=== PATIENT | female | born 1990 | race African-American/Black ===

== ENCOUNTER → 2017-06-25 | Outpatient (REF) | LOC: M LAB 10:17 | PROVIDERS: ATTEND Nurse Practitioner Adult Health | DX: Z02.1 Encounter for pre-employment examination (principal) ==

== ENCOUNTER 2018-08-17 14:17 | Emergency (ER) | payer OTHER ==
[2018-08-17] MEDS ORDERED: FLUORESCEIN OPHTH 1 MG STRIP OD (15:15)
[2018-08-17] MEDS ORDERED: TETRACAINE 0.5% OPHTH SOLN 4ML OD (15:15)
[2018-08-17] MEDS: ERYTHROMYCIN OPHTH OINT OD (15:24)
== END 2018-08-17 15:46 | disposition home or self-care (01) ==
LOC: M ED 14:17
DX: H10.021 Other mucopurulent conjunctivitis, right eye (principal); Z88.5 Allergy status to narcotic agent
CPT/HCPCS: 99283

== ENCOUNTER 2018-11-04 23:10 | Emergency (ER) | payer OTHER ==
[~2018-11-04] VITALS: Ht 167.6 cm; Wt 95.9 kg
[~2018-11-04 23:10] MED LIST: ERYTOIN8 OD
[2018-11-05 00:15] LABS: BASO % 0.7 % (0.0-1.0); EOS # 0.5 10^3/uL (0.0-0.50); EOS % 8.1 % (0.0-3.0); HEMOGLOBIN 10.9 g/dl (12.0-15.5); LYMPH # 2.7 10^3/uL (1.5-4.5); LYMPH % 47.7 % (24.0-44.0); MEAN CORPUSCULAR HGB CONC 31.1 g/dl (32.0-36.5); MEAN CORPUSCULAR VOLUME 86.6 fl (80.0-96.0); MONO # 0.4 10^3/uL (0.0-0.8); MONO % 7.3 % (0.0-5.0); PLATELET COUNT, AUTOMATED 384 10^3/uL (150-450); RED BLOOD COUNT 4.04 10^6/uL (4.00-5.40); WHITE BLOOD COUNT 5.6 10^3/uL (4.0-10.0)
[2018-11-05 00:18] LABS: INR 1.04; PROTHROMBIN TIME 13.7 SECONDS (12.1-14.4)
[2018-11-05 00:19] LABS: PARTIAL THROMBOPLASTIN TIME 35.9 SECONDS (25.4-37.6)
[2018-11-05 00:24] LABS: BLOOD UREA NITROGEN 11 MG/DL (7-18); CALCIUM LEVEL 8.5 MG/DL (8.5-10.1); CARBON DIOXIDE LEVEL 27 MEQ/L (21-32); CHLORIDE LEVEL 105 MEQ/L (98-107); CPK CREATINE PHOSPHOKINASE 228 U/L (26-192); CREATININE FOR GFR 0.69 MG/DL (0.55-1.30); GLOMERULAR FILTRATION RATE > 60.0 (>60); GLUCOSE, FASTING 103 MG/DL (70-100); MB/CK RELATIVE INDEX 1.45 (< OR =4); POTASSIUM SERUM 3.9 MEQ/L (3.5-5.1); SODIUM LEVEL 140 MEQ/L (136-145); TROPONIN I < 0.02 NG/ML (< 0.10)
[2018-11-05 00:29] LABS: HCG, SERUM QUALITATIVE NEGATIVE (NEGATIVE)
[2018-11-05] MEDS ORDERED: ISOVUE-370 76% 100ML VIAL (Q9967) As Ordered ONE (00:38)
--- NOTE | 2018-11-05 01:54 | REPVR ---
EXAM: CT Angiography Chest With Contrast EXAM DATE/TIME: 11/05/18 (12:33am) CLINICAL HISTORY: 28 year old female with chest pain TECHNIQUE: Axial computed tomographic angiography images of the chest with intravenous contrast using CT angiography protocol. All CT scans at this facility use at least one of these dose optimization techniques: automated exposure control; mA and/or kV adjustment per patient size (includes targeted exams where dose is matched to clinical indication); or iterative reconstruction. Coronal and sagittal reformatted images were created and reviewed. MIP reconstructed images were created and reviewed. CONTRAST: 75 ml of Iso administered intravenously COMPARISON: No relevant prior studies available FINDINGS: Pulmonary arteries: Normal. No pulmonary emboli. Aorta: Normal. No aortic aneurysm. No aortic dissection. Lungs: Normal. No consolidation nor masses. Pleural space: Normal. No pneumothorax. No pleural effusions. Heart: Normal. No cardiomegaly. No pericardial effusion. Lymph nodes: Unremarkable. No enlarged lymph nodes. Bones/joints: Unremarkable. No acute fracture. Soft tissues: Unremarkable. IMPRESSION: No acute findings. No filling defects suspicious for pulmonary emboli are seen. There is no CT evidence of aortic dissection nor leakage. No aortic aneurysm is appreciated. Electronically signed by: Yodit Stinson On 11/05/2018 01:54:21 AM
[2018-11-05] MEDS ORDERED: KETOROLAC 30 MG/ML VIAL (J1885) IV ONE (02:00)
[2018-11-05 02:45] VITALS: BP 114/66
--- NOTE | 2018-11-06 08:11 | ECGEPIP ---
Stationary ECG Study [facility] - ED Test Date: 2018-11-04 Pat Name: DEONTE TITUS Department: Room: - Gender: F Handy Worker: edmond : 1990 Requested By: HERNANDEZ HINES Order Number: [id number] Reading MD: Marjan Wooten Measurements Intervals [place] Rate: 76 P: 71 TX: 166 QRS: 11 QRSD: 84 T: 35 QT: 382 QTc: 432 Interpretive Statements SINUS RHYTHM NONSPECIFIC ST T WAVE CHANGES NO OLD ECG FOR COMPARISON Electronically Signed On 11-06-2018 8:11:34 EST by Marjan Wooten
== END 2018-11-05 03:07 | disposition home or self-care (01) ==
LOC: M ED 23:10
DX: R07.89 Other chest pain (principal); Z97.5 Presence of (intrauterine) contraceptive device
CPT/HCPCS: 71275; 80048; 82550; 82553; 84703; 85025; 85610; 85730; 93005; 96374; 99284; J1885; Q9967

== ENCOUNTER 2019-01-01 21:40 | Emergency (ER) | payer OTHER ==
[~2019-01-01] VITALS: Ht 170.2 cm; Wt 95.9 kg
[2019-01-01 21:40] VITALS: BP 142/77
== END 2019-01-01 23:02 | disposition home or self-care (01) ==
LOC: M ED 21:40
DX: J02.9 Acute pharyngitis, unspecified (principal); Z88.5 Allergy status to narcotic agent

== ENCOUNTER 2019-11-09 03:30 | Emergency (ER) | payer OTHER ==
[~2019-11-09] VITALS: Ht 167.6 cm; Wt 100.0 kg
[2019-11-09 04:03] LABS: BASO % 0.5 % (0.0-1.0); EOS # 0.4 10^3/uL (0.0-0.5); EOS % 6.2 % (0.0-3.0); HEMATOCRIT 37.8 % (36.0-47.0); HEMOGLOBIN 11.2 g/dl (12.0-15.5); LYMPH # 2.3 10^3/uL (1.5-5.0); LYMPH % 33.9 % (24.0-44.0); MEAN CORPUSCULAR HGB CONC 29.6 g/dl (32.0-36.5); MEAN CORPUSCULAR VOLUME 87.9 fl (80.0-96.0); MONO # 0.5 10^3/uL (0.0-0.8); MONO % 7.4 % (0.0-5.0); NEUTROPHILS # 3.5 10^3/uL (1.5-8.5); NEUTROPHILS % 51.8 % (36.0-66.0); PLATELET COUNT, AUTOMATED 392 10^3/uL (150-450); WHITE BLOOD COUNT 6.7 10^3/uL (4.0-10.0)
[2019-11-09 04:32] LABS: ALBUMIN 3.6 GM/DL (3.2-5.2); ALT/SGPT 16 U/L (12-78); BILIRUBIN,DIRECT 0.1 MG/DL (0.0-0.2); BILIRUBIN,TOTAL 0.3 MG/DL (0.2-1.0); BLOOD UREA NITROGEN 9 MG/DL (7-18); CALCIUM LEVEL 8.5 MG/DL (8.5-10.1); CARBON DIOXIDE LEVEL 26 MEQ/L (21-32); CHLORIDE LEVEL 106 MEQ/L (98-107); CREATININE FOR GFR 0.73 MG/DL (0.55-1.30); GLOMERULAR FILTRATION RATE > 60.0 (>60); GLUCOSE, FASTING 102 MG/DL (70-100); LIPASE 117 U/L (73-393); POTASSIUM SERUM 3.9 MEQ/L (3.5-5.1); SODIUM LEVEL 138 MEQ/L (136-145); TOTAL PROTEIN 7.4 GM/DL (6.4-8.2)
[2019-11-09 05:16] LABS: HCG, SERUM QUALITATIVE NEGATIVE (NEGATIVE)
[2019-11-09] MEDS ORDERED: ONDANSETRON 4 MG ORAL DISINTEGRATING TAB (Q0162 PER 1MG) PO ONE (06:15)
--- NOTE | 2019-11-09 08:26 | REPVR ---
PROCEDURE INFORMATION: Exam: US Pelvis Complete, Transabdominal and US Pelvis, Transvaginal and US Duplex Artery and Vein, Ovaries, Complete Exam date and time: 11/09/2019 7:44 AM Age: 29 years old Clinical indication: Pelvic pain; Additional info: Llq pain with HX of ovarian cyst TECHNIQUE: Imaging protocol: Real-time transabdominal and transvaginal pelvic ultrasound (complete) with image documentation. Transvaginal imaging was used for better evaluation of the endometrium and adnexa. Real-time duplex ultrasound scan of the arterial and venous flow of the ovaries with B-mode, color Doppler flow and spectral waveform analysis. COMPARISON: No relevant prior studies available. FINDINGS: Uterus/cervix: The uterus measures 9.8 x 4.8 x 5.8 cm transabdominally and 10.2 x 5.1 x 6.7 cm transvaginally. It is homogeneous in echotexture, without demonstrated lesion. An intrauterine device is in place. The endometrium measures 7 mm in thickness as best visualized transvaginally. Right adnexa: The right ovary measures 3.2 x 4.5 x 3.5 cm transabdominally and 4.2 x 3.2 x 3.6 cm transvaginally. It contains multiple follicles and demonstrates normal internal arterial and venous flow. Peak systolic velocity 16.0 cm/s, end-diastolic velocity 8.9 cm/s, resistive index 0.44. Left adnexa: The left ovary measures 5.1 x 2.9 x 3.8 cm, as seen transvaginally only. It contains multiple follicles and a thick-walled collapsing cyst which measures 2.1 x 1.2 x 1.9 cm. There is normal internal arterial and venous flow. Peak systolic velocity 9.9 cm/s, end-diastolic velocity 3.9 cm/s, resistive index 0.61. Free fluid: Small free fluid is present in the cul-de-sac. Bladder: The urinary bladder measures 9.0 x 6.0 x 5.3 cm and appears unremarkable. IMPRESSION: 1. Intrauterine device in place. 2. Bilateral ovarian follicles with a 2.1 cm thick-walled collapsing left ovarian cyst. 3. Normal internal flow to both ovaries without torsion. 4. Small free fluid in the cul-de-sac. Electronically signed by: Eris Barahona On 11/09/2019 08:25:53 AM
[2019-11-09] MEDS ORDERED: ONDA4TAB6 PO (08:40)
[2019-11-09 09:07] VITALS: BP 118/75
== END 2019-11-09 09:09 | disposition home or self-care (01) ==
LOC: M ED 03:30
DX: N83.202 Unspecified ovarian cyst, left side (principal); R19.7 Diarrhea, unspecified; Z97.5 Presence of (intrauterine) contraceptive device; Z79.899 Other long term (current) drug therapy
CPT/HCPCS: 76830; 76856; 80048; 80076; 81001; 83690; 84703; 85025; 87086; 93976; 99284; Q0162

== ENCOUNTER → 2020-01-24 | Outpatient (CLI) | payer OTHER ==
[~2020-01-24] MED LIST changes: +ONDA4TAB6 PO
--- NOTE | 2020-01-24 10:22 | REP ---
PELVIC ULTRASOUND: Real-time sonographic evaluation of the pelvis performed. Transabdominal and endovaginal technique is utilized. The bladder measures 3.9 x 3.6 cm. The uterus measures 9.1 x 5.3 x 6.5 cm. Endometrial thickness is prominent at 18 mm. There is an IUD in the endometrial canal, which appears to be in good position. Posteriorly, there is a hypoechoic nodule which appears to represent a submucosal fibroid measuring 1.3 x 1.5 x 1.2 cm. Uterus is retroverted. Right ovary measures 4.3 x 3.1 x 3.2 cm and left ovary 2.9 x 1.5 x 1.8 cm. Complex cystic structure in the right ovary measures 2.7 x 2.0 x 2.1 cm likely representing a hemorrhagic resolving dominant follicle or cyst. There is a simple paraovarian cyst in the right measuring 1.6 x 1.2 x 1.1 cm. Small amount of free fluid is seen in the adnexal regions. There is no evidence of ovarian torsion bilaterally, blood flow is seen in each ovary with duplex Doppler evaluation. IMPRESSION: IUD in the endometrial canal. There appears to be a submucosal fibroid in the posterior retroverted uterus measuring 1.5 cm in maximum diameter. Prominent endometrial thickness of 18 mm. Complex dominant follicle or small resolving cyst right ovary 2.7 cm in maximum diameter. Simple paraovarian cyst on the right 1.6 cm maximally. Small amount of free fluid.
== END ==
LOC: M WHC 08:49
PROVIDERS: ATTEND Advanced Practice Midwife
DX: N83.201 Unspecified ovarian cyst, right side (principal)

== ENCOUNTER → 2020-05-07 | Outpatient (REF) | payer OTHER, MEDICAID | LOC: M SFHCWAGY 10:19 | PROVIDERS: ATTEND Advanced Practice Midwife | DX: Z12.4 Encounter for screening for malignant neoplasm of cervix (principal); Z01.419 Encounter for gynecological examination (general) (routine) without abnormal findings ==

== ENCOUNTER → 2020-07-26 | Outpatient (REF) | payer OTHER, MEDICAID ==
[2020-07-26 16:56] LABS: BASO % 0.9 % (0.0-1.0); EOS # 0.2 10^3/uL (0.0-0.5); EOS % 5.1 % (0.0-3.0); HEMATOCRIT 36.1 % (36.0-47.0); LYMPH # 1.8 10^3/uL (1.5-5.0); LYMPH % 41.9 % (24.0-44.0); MEAN CORPUSCULAR HEMOGLOBIN 26.7 pg (27.0-33.0); MEAN CORPUSCULAR HGB CONC 30.5 g/dl (32.0-36.5); MEAN CORPUSCULAR VOLUME 87.6 fl (80.0-96.0); MONO # 0.3 10^3/uL (0.0-0.8); MONO % 6.3 % (0.0-5.0); NEUTROPHILS % 45.6 % (36.0-66.0); PLATELET COUNT, AUTOMATED 420 10^3/uL (150-450); RED BLOOD COUNT 4.12 10^6/uL (4.00-5.40); WHITE BLOOD COUNT 4.3 10^3/uL (4.0-10.0)
[2020-07-26 17:10] LABS: ALBUMIN 3.6 GM/DL (3.2-5.2); ALT/SGPT 16 U/L (12-78); BILIRUBIN,TOTAL 0.4 MG/DL (0.2-1.0); BLOOD UREA NITROGEN 12 MG/DL (7-18); CALCIUM LEVEL 8.5 MG/DL (8.5-10.1); CARBON DIOXIDE LEVEL 27 MEQ/L (21-32); CHLORIDE LEVEL 106 MEQ/L (98-107); CHOLESTEROL LEVEL 148 MG/DL (<200); CHOLESTEROL RISK RATIO 3.363 (<5); CREATININE FOR GFR 0.69 MG/DL (0.55-1.30); GLOMERULAR FILTRATION RATE > 60.0 (>60); GLUCOSE, FASTING 96 MG/DL (70-100); HDL CHOLESTEROL 44 MG/DL (>40); LDL CHOLESTEROL 88 MG/DL (<100); NON-HDL-C 104 MG/DL; POTASSIUM SERUM 4.2 MEQ/L (3.5-5.1); SODIUM LEVEL 138 MEQ/L (136-145); TOTAL PROTEIN 7.6 GM/DL (6.4-8.2); TRIGLYCERIDES LEVEL 79 MG/DL (<150)
[2020-07-26 17:14] LABS: HEMOGLOBIN A1c 5.1 %
== END ==
LOC: M LAB REF 16:18
PROVIDERS: ATTEND Physician Assistant
DX: R42 Dizziness and giddiness (principal)

== ENCOUNTER → 2020-09-04 | Outpatient (REF) | payer OTHER, MEDICAID ==
[2020-09-04 13:14] LABS: BASO # 0.1 10^3/uL (0.0-0.2); BASO % 1.3 % (0.0-1.0); EOS # 0.2 10^3/uL (0.0-0.5); EOS % 6.4 % (0.0-3.0); HEMOGLOBIN 11.1 g/dl (12.0-15.5); LYMPH # 1.6 10^3/uL (1.5-5.0); LYMPH % 43.5 % (24.0-44.0); MEAN CORPUSCULAR HEMOGLOBIN 26.9 pg (27.0-33.0); MEAN CORPUSCULAR HGB CONC 30.8 g/dl (32.0-36.5); MEAN CORPUSCULAR VOLUME 87.4 fl (80.0-96.0); MONO # 0.3 10^3/uL (0.0-0.8); NEUTROPHILS # 1.5 10^3/uL (1.5-8.5); NEUTROPHILS % 40.5 % (36.0-66.0); PLATELET COUNT, AUTOMATED 418 10^3/uL (150-450); RED BLOOD COUNT 4.12 10^6/uL (4.00-5.40); WHITE BLOOD COUNT 3.8 10^3/uL (4.0-10.0)
[2020-09-04 13:53] LABS: PERCENT SATURATION 25.1 % (13.2-45.0)
== END ==
LOC: M LAB REF 12:33
PROVIDERS: ATTEND Physician Assistant
DX: D64.9 Anemia, unspecified (principal)

== ENCOUNTER → 2021-07-22 | Outpatient (CLI) | payer OTHER ==
--- NOTE | 2021-07-22 15:57 | REP ---
INDICATION: OVARIAN CYST. COMPARISON: January 24, 2020. TECHNIQUE: Transabdominal and transvaginal scanning were performed. FINDINGS: Uterine dimensions are normal at 9.1 x 5.5 x 6.8 cm. Endometrial echo is 1.4 cm thick and centrally placed. No free fluid is seen in the cul-de-sac. Visualized bladder milian are smooth. uterus is tipped somewhat to the right. There is a trace of free fluid in the cul-de-sac consistent with physiologic fluid. An IUD is seen in good position. There is a 1.3 x 1.8 cm nodular area of endometrial thickening in the fundus which could be an endometrial polyp. The right ovary has dimensions of 5.0 x 2.6 x 3.7 cm. It's Doppler flow is normal with a resistive index of 0.4. The left ovary dimensions are normal as well at 2.7 x 2.7 x 2.2 cm. It's Doppler flow was normal with resistive index of 0.74. IMPRESSION: Possible endometrial polyp. IUD in place. Physiologic free fluid. No ovarian mass or cyst seen. <Electronically signed by Maximino Laughlin > 07/22/21 0819
== END ==
LOC: M WHC 07:20
PROVIDERS: ATTEND Advanced Practice Midwife
DX: N83.209 Unspecified ovarian cyst, unspecified side (principal)

== ENCOUNTER → 2021-08-04 | Outpatient (REF) | LOC: M EMP 10:13 | PROVIDERS: ATTEND Family Medicine | DX: Z20.822 Contact with and (suspected) exposure to COVID-19 (principal) ==

== ENCOUNTER 2021-08-15 16:52 | Emergency (ER) | payer OTHER ==
[~2021-08-15] VITALS: Ht 170.2 cm; Wt 112.3 kg
--- OUTSIDE RECORDS SUMMARY | 2021-08-15 17:00 | CCD ---
Author Author [facility] Organization [facility] Address Unknown Phone Unavailable Care Team Providers Care Right Of Way Worker Name Role Phone Matthew, Carrie REPAIR WEAVER REPAIR WEAVER Unavailable Unavailable Matthew, A Carrie REPAIR WEAVER Unavailable Unavailable Matthew, A Carrie REPAIR WEAVER Unavailable Unavailable Matthew, A Carrie REPAIR WEAVER Unavailable Unavailable Matthew, A Carrie REPAIR WEAVER Unavailable Unavailable Matthew, A Carrie REPAIR WEAVER Unavailable Unavailable Matthew, A Carrie REPAIR WEAVER Unavailable Unavailable Matthew, A Carrie REPAIR WEAVER Unavailable Unavailable Matthew, A Carrie REPAIR WEAVER Unavailable Unavailable Matthew, A Carrie REPAIR WEAVER Unavailable Unavailable Matthew, A Carrie REPAIR WEAVER Unavailable Unavailable Matthew, A Carrie REPAIR WEAVER Unavailable Unavailable Matthew, A Carrie REPAIR WEAVER Unavailable Unavailable Matthew, A Carrie REPAIR WEAVER Unavailable Unavailable Matthew, A Carrie REPAIR WEAVER Unavailable Unavailable Matthew, A Carrie REPAIR WEAVER Unavailable Unavailable Matthew, A Carrie REPAIR WEAVER Unavailable Unavailable Matthew, A Carrie REPAIR WEAVER Unavailable Unavailable Matthew, A Carrie REPAIR WEAVER Unavailable Unavailable Matthew, A Carrie REPAIR WEAVER Unavailable Unavailable Matthew, A Carrie REPAIR WEAVER Unavailable Unavailable Matthew, A Carrie REPAIR WEAVER Unavailable Unavailable Matthew, A Carrie REPAIR WEAVER Unavailable Unavailable Matthew, A Carrie REPAIR WEAVER Unavailable Unavailable Matthew, A Carrie REPAIR WEAVER Unavailable Unavailable Matthew, A Carrie REPAIR WEAVER Unavailable Unavailable Matthew, A Carrie REPAIR WEAVER Unavailable Unavailable Matthew, A Carrie REPAIR WEAVER Unavailable Unavailable Matthew, A Carrie REPAIR WEAVER Unavailable Unavailable Matthew, A Carrie REPAIR WEAVER Unavailable Unavailable Matthew, A Carrie REPAIR WEAVER Unavailable Unavailable Matthew, A Carrie REPAIR WEAVER Unavailable Unavailable Scordo, M Bella PA Unavailable Unavailable Scordo, M Bella PA Unavailable Unavailable Scordo, M Bella PA Unavailable Unavailable Scordo, M Bella PA Unavailable Unavailable Scordo, M Bella PA Unavailable Unavailable Scordo, M Bella PA Unavailable Unavailable Scordo, M Bella PA Unavailable Unavailable Scordo, M Bella PA Unavailable Unavailable Scordo, M Bella PA Unavailable Unavailable Scordo, M Bella PA Unavailable Unavailable Scordo, M Bella PA Unavailable Unavailable Scordo, M Bella PA Unavailable Unavailable Scordo, M Bella PA Unavailable Unavailable Scordo, M Bella PA Unavailable Unavailable Scordo, M Bella PA Unavailable Unavailable Scordo, M Bella PA Unavailable Unavailable Scordo, M Bella PA Unavailable Unavailable Scordo, M Bella PA Unavailable Unavailable Scordo, M Bella PA Unavailable Unavailable Scordo, M Bella PA Unavailable Unavailable Scordo, M Bella PA Unavailable Unavailable Scordo, M Bella PA Unavailable Unavailable Scordo, M Bella PA Unavailable Unavailable Scordo, M Bella PA Unavailable Unavailable Scordo, M Bella PA Unavailable Unavailable Scordo, M Bella PA Unavailable Unavailable Scordo, M Bella PA Unavailable Unavailable Scordo, M Bella PA Unavailable Unavailable Scordo, M Bella PA Unavailable Unavailable Scordo, M Bella PA Unavailable Unavailable Scordo, M Bella PA Unavailable Unavailable Scordo, M Bella PA Unavailable Unavailable Scordo, M Bella PA Unavailable Unavailable Scordo, M Bella PA Unavailable Unavailable Scordo, M Bella PA Unavailable Unavailable Scordo, M Bella PA Unavailable Unavailable Scordo, M Bella PA Unavailable Unavailable Scordo, M Bella PA Unavailable Unavailable Scordo, M Bella PA Unavailable Unavailable Scordo, M Bella PA Unavailable Unavailable Scordo, M Bella PA Unavailable Unavailable Scordo, M Bella PA Unavailable Unavailable Scordo, M Bella PA Unavailable Unavailable Scordo, M Bella PA Unavailable Unavailable Scordo, M Bella PA Unavailable Unavailable Scordo, M Bella PA Unavailable Unavailable Scordo, M Bella PA Unavailable Unavailable Re-disclosure Warning The records that you are about to access may contain information from federally-assisted alcohol or drug abuse programs. If such information is present, then the following federally mandated warning applies: This information has been disclosed to you from records protected by federal confidentiality rules (42 CFR part 2). The federal rules prohibit you from making any further disclosure of this information unless further disclosure is expressly permitted by the written consent of the person to whom it pertains or as otherwise permitted by 42 CFR part 2. A general authorization for the release of medical or other information is NOT sufficient for this purpose. The Federal rules restrict any use of the information to criminally investigate or prosecute any alcohol or drug abuse patient.The records that you are about to access may contain highly sensitive health information, the redisclosure of which is protected by Article 27-F of the [facility] Public Health law. If you continue you may have access to information: Regarding HIV / AIDS; Provided by facilities licensed or operated by the [facility] Office of Mental Health; or Provided by the [facility] Office for People With Developmental Disabilities. If such information is present, then the following [facility] mandated warning applies: This information has been disclosed to you from confidential records which are protected by state law. State law prohibits you from making any further disclosure of this information without the specific written consent of the person to whom it pertains, or as otherwise permitted by law. Any unauthorized further disclosure in violation of state law may result in a fine or retirement sentence or both. A general authorization for the release of medical or other information is NOT sufficient authorization for further disc losure. Encounters Encounter Providers Location Date Indications Data Source(s ) Bella Saha PA-C: [address] [place] [id number], Ph. Attender: Bella GARNER [facility] Medical 02/05/2021 12:00:00 AM EDT [facility] ([facility]) Outpatient Attender: KAMILLE SIMENTAL FP 09/04/2020 08:20:01 A M EST [facility] Bella Saha PA-C: [address] [place] [address], Ph. Attender: Bella GARNER [facility] Medical 09/04/2020 12:00:00 AM EST [facility] ([facility]) Bella Saha PA-C: [address] [place] [address], Ph. Attender: Bella GARNER [facility] Medical 09/04/2020 12:00:00 AM EST [facility] ([facility]) Outpatient Attender: Carrie KUMAR 07/29/2020 07:4 4:03 AM EDT [facility] Outpatient Attender: KAMILLE KUMAR 07/29/2020 07:44:01 A M EDT [facility] Outpatient Attender: Carrie SIMENTAL FP 07/26/2020 02:0 1:01 PM EDT [facility] Outpatient Attender: KAMILLE KUMAR 07/26/2020 09:18:02 A M EDT [facility] Outpatient Attender: Carrie KUMAR 07/26/2020 09:1 7:01 AM EDT [facility] Outpatient Attender: KAMILLE KUMAR 07/26/2020 07:51:00 A M EDT [facility] Outpatient Attender: KAMILLE KUMAR 07/26/2020 07:50:00 A M EDT [facility] Outpatient Attender: KAMILLE KUMAR 07/26/2020 07:30:01 A M EDT [facility] Outpatient Attender: KAMILLE KUMAR 07/26/2020 07:29:01 A M EDT [facility] Outpatient Attender: KAMILLE KUMAR 07/17/2020 02:45:00 P M EDT [facility] Outpatient Attender: KAMILLE Castro REPAIR WEAVER FP 06/28/2020 01:46:01 P M EDT [facility] Immunizations Vaccine Date Status Description Data Source(s) COVID-19 VACCINE Moderna 02/28/2021 12:00:00 AM EDT completed [facility] Vaccine Series Complete: YESThis Data wa s Submitted to [facility] [employer]. COVID-19 VACCINE Moderna 01/31/2021 12:00:00 AM EDT completed [facility] Vaccine Series Complete: NOThis Data was Submitted to [facility] [employer]. Tdap 07/26/2020 12:00:00 AM EDT completed 07/26/2020 0.5 mL [facility] ([facility]) Medications Medication Brand Name Start Date Product Form Dose Route Admi nistrative Instructions Pharmacy Instructions Status Indications Reaction Description Data Source(s) Ondansetron 4 MG Disintegrating Oral Tab let ondansetron 4 mg disintegrating tablet DISSOLVE ONE TABLET ON TONGUE EVERY 6 TO 8 HOURS NEEDED FOR NAUSEA/VOMITING ondansetron 4 mg disintegrating tablet D ISSOLVE ONE TABLET ON TONGUE EVERY 6 TO 8 HOURS NEEDED FOR NAUSEA/VOMITING completed ondansetron 4 MG Disintegrating Oral Tablet [facility] ([facility]) Ondansetron 4 MG Disintegrating Oral Tab let ondansetron 4 mg disintegrating tablet DISSOLVE ONE TABLET ON TONGUE EVERY 6 TO 8 HOURS NEEDED FOR NAUSEA/VOMITING ondansetron 4 mg disintegrating tablet D ISSOLVE ONE TABLET ON TONGUE EVERY 6 TO 8 HOURS NEEDED FOR NAUSEA/VOMITING completed ondansetron 4 MG Disintegrating Oral Tablet [facility] ([facility]) Insurance Providers Payer name Policy type / Coverage type Policy ID Covered alliance party ID Covered alliance party's relationship to carr Policy Carr Plan Information Managed Care - [facility] P [id number] S [id number] [place] [id number] SP [id number] R [id number] [id number] SP [id number] Medicaid S [id number] S [id number] [facility] [id number] SP [id number] [facility] O [id number] S [id number] [facility] [id number] SP [id number] MEDICAID [id number] SP [id number] [facility] P [id number] S [id number] [facility] [id number] SP [id number] Sliding Fee Scale P UNAVAILABLE S UNAVAILABLE Problems, Conditions, and Diagnoses Code Display Name Description Problem Type Effective Dates Data Source(s) 723.1 Neck pain Neck pain 07/26/2020 09:16:27 AM ED T [facility] V70.0 Encounter for general adult medical exam ination with abnormal findings Encounter for general adult medical examination with abnormal findings 07/26/2020 09:16:27 AM EDT [facility] V05.9 Encounter for immunization Encounter for immunization 07/26/2020 09:16:27 AM EDT [facility] 788.41 Increased frequency of urination Increased frequency o f urination 07/26/2020 09:16:27 AM EDT [facility] 780.4 Dizziness and giddiness Dizziness and giddiness 07/26/2020 09:16:27 AM EDT [facility] V85.38 BMI 38.0-38.9 BMI 38.0-38.9 07/26/2020 09:16:27 AM EDT [facility] 278.00 Obesity Obesity 07/26/2020 09:16:27 AM ED T [facility] [id number] Procedure by method Procedure by Method Problem 1 12:00:00 AM EDT - 02/05/2021 12:00:00 AM EDT [place] ([facility]) [id number] Influenza vaccine needed Influenza Vaccine Needed Pro blem 07/26/2020 12:00:00 AM EDT - 02/05/2021 12:00:00 AM EDT [facility] ([facility]) [id number] Increased frequency of urination Increased Frequ ency of Urination Problem 07/26/2020 12:00:00 AM EDT - 02/05/2021 12:00:00 AM ED T [facility] ([facility]) [id number] Dizziness and giddiness Dizziness and Giddiness Proble m 07/26/2020 12:00:00 AM EDT - 02/05/2021 12:00:00 AM EDT [facility] ([facility]) [id number] Neck pain Neck Pain Problem 07/26/2020 12:00:00 AM ED T [facility] ([facility]) 668714504 Body mass index 30+ - obesity Body Mass Index 30+ - Ob esity Problem 07/26/2020 12:00:00 AM EDT [facility] ([facility]) [id number] Simple obesity Simple Obesity Problem 07/26/2020 12:00: 00 AM EDT [facility] ([facility]) 32809051 Diarrhea Diarrhea Problem 02/11/2018 12:0 0:00 AM EDT - 02/05/2021 12:00:00 AM EDT [facility] ([facility]) Surgeries/Procedures No Information Results ID Date Data Source [id number] 08/05/2021 12:00:00 AM EDT [facility] Name Value Range Interpretation Code Description Data Carey rce(s) Supporting Document(s) SARS coronavirus 2 [facility]IVE [facility] This lab was ordered by [facility] and reported by [facility]. ID Date Data Source [id number] 08/04/2021 10:13:00 AM EDT [facility] Name Value Range Interpretation Code Description Data Carey rce(s) Supporting Document(s) SARS coronavirus 2 RNA [Presence] in Res piratory specimen by ANGLE with probe detection POSITIVE [facility] This lab was ordered by [facility] a nd reported by [facility]. ID Date Data Source [id number] 07/29/2021 12:00:00 AM EDT [facility] Name Value Range Interpretation Code Description Data Carey rce(s) Supporting Document(s) SARS coronavirus 2 Ag NEGATIVE [facility] This lab was ordered by [facility] and reported by [facility]. ID Date Data Source [id number] 07/22/2021 12:00:00 AM EDT [facility] Name Value Range Interpretation Code Description Data Carey rce(s) Supporting Document(s) SARS coronavirus 2 Ag NEGATIVE [facility] This lab was ordered by [facility] and reported by [facility]. ID Date Data Source [id number] 07/15/2021 12:00:00 AM EDT [facility] Name Value Range Interpretation Code Description Data Carey rce(s) Supporting Document(s) SARS coronavirus 2 Ag NEGATIVE [facility] This lab was ordered by [facility] and reported by [facility]. ID Date Data Source [id number] 07/08/2021 12:00:00 AM EDT [facility] Name Value Range Interpretation Code Description Data Carey rce(s) Supporting Document(s) SARS coronavirus 2 Ag NEGATIVE [facility] This lab was ordered by [facility] and reported by [facility]. ID Date Data Source [id number] 06/26/2021 12:00:00 AM EDT [facility] Name Value Range Interpretation Code Description Data Carey rce(s) Supporting Document(s) SARS coronavirus 2 Ag NEGATIVE [facility] This lab was ordered by [facility] and reported by [facility]. ID Date Data Source [id number] 03/27/2021 12:00:00 AM EDT [facility] Name Value Range Interpretation Code Description Data Carey rce(s) Supporting Document(s) SARS coronavirus 2 Ag NEGATIVE [facility] This lab was ordered by [facility] and reported by [facility]. ID Date Data Source [id number] 03/18/2021 12:00:00 AM EDT [facility] Name Value Range Interpretation Code Description Data Carey rce(s) Supporting Document(s) SARS coronavirus 2 Ag NEGATIVE [facility] This lab was ordered by [facility] and reported by [facility]. ID Date Data Source [id number] 03/10/2021 11:27:00 AM EDT [facility] Name Value Range Interpretation Code Description Data Carey rce(s) Supporting Document(s) SARS-CoV-2 (COVID-19) RNA [Presence] in Respiratory specimen by ANGLE with probe detection Not Detected [facility] This lab was ordered by [facility] and reported by [employer]. ID Date Data Source [id number] 03/03/2021 02:22:00 PM EDT [facility] Name Value Range Interpretation Code Description Data Carey rce(s) Supporting Document(s) SARS-CoV-2 (COVID-19) RNA [Presence] in Respiratory specimen by ANGLE with probe detection Not Detected [facility] This lab was ordered by [facility] and reported by [employer] ID Date Data Source [id number] 02/27/2021 12:00:00 AM EDT [facility] Name Value Range Interpretation Code Description Data Carey rce(s) Supporting Document(s) SARS coronavirus 2 Ag NEGATIVE [facility] This lab was ordered by [facility] and reported by [facility]. ID Date Data Source [id number] 02/24/2021 01:38:00 PM EDT [facility] Name Value Range Interpretation Code Description Data Carey rce(s) Supporting Document(s) SARS-CoV-2 (COVID-19) RNA [Presence] in Respiratory specimen by ANGLE with probe detection Not Detected [facility] This lab was ordered by [facility] and reported by [employer]. ID Date Data Source [id number] 02/17/2021 05:49:00 AM EDT [facility] Name Value Range Interpretation Code Description Data Carey rce(s) Supporting Document(s) SARS-CoV-2 (COVID-19) RNA [Presence] in Respiratory specimen by ANGLE with probe detection Not Detected [facility] This lab was ordered by [facility] and reported by [employer] ID Date Data Source [id number] 02/10/2021 12:49:00 PM EDT [facility] Name Value Range Interpretation Code Description Data Carey rce(s) Supporting Document(s) SARS-CoV-2 (COVID-19) RNA [Presence] in Respiratory specimen by ANGLE with probe detection Not Detected [facility] This lab was ordered by [facility] and reported by [employer] ID Date Data Source [id number] 02/03/2021 12:56:00 PM EDT [facility] Name Value Range Interpretation Code Description Data Carey rce(s) Supporting Document(s) SARS-CoV-2 (COVID-19) RNA [Presence] in Respiratory specimen by ANGLE with probe detection Not Detected [facility] This lab was ordered by [facility] and reported by [employer] ID Date Data Source [id number] 01/27/2021 10:21:00 AM EDT [facility] Name Value Range Interpretation Code Description Data Carey rce(s) Supporting Document(s) SARS-CoV-2 (COVID-19) RNA [Presence] in Respiratory specimen by ANGLE with probe detection Not Detected [facility] This lab was ordered by [facility] and reported by [employer]. ID Date Data Source [id number] 01/20/2021 09:21:00 AM EDT [facility] Name Value Range Interpretation Code Description Data Carey rce(s) Supporting Document(s) SARS-CoV-2 (COVID-19) RNA [Presence] in Respiratory specimen by ANGLE with probe detection Not Detected [facility] This lab was ordered by [facility] and reported by [employer] ID Date Data Source [id number] 01/13/2021 12:30:00 PM EDT [facility] Name Value Range Interpretation Code Description Data Carey rce(s) Supporting Document(s) SARS-CoV-2 (COVID-19) RNA [Presence] in Respiratory specimen by ANGLE with probe detection Not Detected [facility] This lab was ordered by [facility] and reported by [employer] ID Date Data Source [id number] 01/06/2021 05:20:00 AM EDT [facility] Name Value Range Interpretation Code Description Data Carey rce(s) Supporting Document(s) SARS coronavirus 2 RNA Not Detected [facility] This lab was ordered by [facility] and reported by [employer]. ID Date Data Source [id number] 12/30/2020 01:30:00 PM EDT [facility] Name Value Range Interpretation Code Description Data Carey rce(s) Supporting Document(s) SARS coronavirus 2 RNA Not Detected [facility] This lab was ordered by [facility] and reported by [facility]. ID Date Data Source [id number] 12/23/2020 12:23:00 PM EST [facility] Name Value Range Interpretation Code Description Data Carey rce(s) Supporting Document(s) SARS coronavirus 2 RNA Not Detected [facility] This lab was ordered by [facility] and reported by [facility]. ID Date Data Source [id number] 12/09/2020 11:00:00 AM EST [facility] Name Value Range Interpretation Code Description Data Carey rce(s) Supporting Document(s) SARS coronavirus 2 RNA Not Detected [facility] This lab was ordered by [facility] and reported by [facility]. ID Date Data Source [id number] 12/05/2020 12:00:00 AM EST [facility] Name Value Range Interpretation Code Description Data Carey rce(s) Supporting Document(s) SARS coronavirus 2 Ag NEGATIVE [facility] This lab was ordered by [facility] and reported by [facility]. ID Date Data Source [id number] 12/02/2020 01:00:00 PM EST [facility] Name Value Range Interpretation Code Description Data Carey rce(s) Supporting Document(s) SARS coronavirus 2 RNA Not Detected [facility] This lab was ordered by [facility] and reported by [facility]. ID Date Data Source [id number] 11/25/2020 02:00:00 PM EST [facility] Name Value Range Interpretation Code Description Data Carey rce(s) Supporting Document(s) SARS coronavirus 2 RNA Not Detected [facility] This lab was ordered by [facility] and reported by [facility]. ID Date Data Source [id number] 11/21/2020 12:00:00 AM EST [facility] Name Value Range Interpretation Code Description Data Carey rce(s) Supporting Document(s) SARS coronavirus 2 Ag [facility] This lab was ordered by [facility] and reported by [facility]. ID Date Data Source [id number] 11/18/2020 01:00:00 PM EST [facility] Name Value Range Interpretation Code Description Data Carey rce(s) Supporting Document(s) SARS coronavirus 2 RNA Not Detected [facility] This lab was ordered by [facility] and reported by [facility]. ID Date Data Source [id number] 11/14/2020 12:00:00 AM EST [facility] Name Value Range Interpretation Code Description Data Carey rce(s) Supporting Document(s) SARS coronavirus 2 Ag NEGATIVE [facility] This lab was ordered by [facility] and reported by [facility]. ID Date Data Source [id number] 11/11/2020 12:00:00 PM EST [facility] Name Value Range Interpretation Code Description Data Carey rce(s) Supporting Document(s) SARS coronavirus 2 RNA Not Detected [facility] This lab was ordered by [facility] and reported by [facility]. ID Date Data Source [id number] 11/07/2020 12:00:00 AM EST [facility] Name Value Range Interpretation Code Description Data Carey rce(s) Supporting Document(s) SARS coronavirus 2 Ag Negative [facility] This lab was ordered by [facility] and reported by [facility]. ID Date Data Source [id number] 11/04/2020 02:52:00 PM EST [facility] Name Value Range Interpretation Code Description Data Carey rce(s) Supporting Document(s) SARS coronavirus 2 RNA Not Detected [facility] This lab was ordered by [facility] and reported by [facility]. ID Date Data Source [id number] 10/31/2020 12:00:00 AM EST [facility] Name Value Range Interpretation Code Description Data Carey rce(s) Supporting Document(s) SARS-CoV2 Rapid Antigen Negative [facility] This lab was ordered by [facility] and reported by [facility]. ID Date Data Source [id number] 10/28/2020 02:30:00 PM EST [facility] Name Value Range Interpretation Code Description Data Carey rce(s) Supporting Document(s) SARS coronavirus 2 RNA Not Detected [facility] This lab was ordered by [facility] and reported by [facility]. ID Date Data Source [id number] 10/21/2020 02:00:00 PM EST [facility] Name Value Range Interpretation Code Description Data Carey rce(s) Supporting Document(s) SARS coronavirus 2 RNA Not Detected [facility] This lab was ordered by [facility] and reported by [facility]. ID Date Data Source [id number] 10/14/2020 12:45:00 PM EST [facility] Name Value Range Interpretation Code Description Data Carey rce(s) Supporting Document(s) SARS coronavirus 2 RNA [facility] This lab was ordered by [facility] and reported by [facility]. ID Date Data Source [id number] 10/04/2020 12:00:00 AM EST [facility] Name Value Range Interpretation Code Description Data Carey rce(s) Supporting Document(s) SARS-CoV2 Rapid Antigen [facility] This lab was ordered by [facility] and reported by [facility]. ID Date Data Source [id number] 09/30/2020 11:00:00 AM EST [facility] Name Value Range Interpretation Code Description Data Carey rce(s) Supporting Document(s) SARS coronavirus 2 RNA [facility] This lab was ordered by [facility] and reported by [facility]. ID Date Data Source [id number] 09/23/2020 05:17:00 AM EST [facility] Name Value Range Interpretation Code Description Data Carey rce(s) Supporting Document(s) SARS coronavirus 2 RNA [facility] This lab was ordered by [facility] and reported by [facility]. ID Date Data Source [id number] 09/16/2020 10:23:00 AM EST [facility] Name Value Range Interpretation Code Description Data Carey rce(s) Supporting Document(s) SARS coronavirus 2 RNA [facility] This lab was ordered by [facility] and reported by [facility]. ID Date Data Source [id number] 09/09/2020 11:00:00 AM EST [facility] Name Value Range Interpretation Code Description Data Carey rce(s) Supporting Document(s) SARS coronavirus 2 RNA [facility] This lab was ordered by [facility] and reported by [facility]. ID Date Data Source [id number] 09/04/2020 09:25:00 AM EST [place] ([facility]) Name Value Range Interpretation Code Description Data Carey rce(s) Supporting Document(s) ferritin 17 NG/mL 8-252 Ferritin [place] ([facility]) ID Date Data Source [id number] 09/04/2020 09:25:00 AM EST [place] ([facility]) Name Value Range Interpretation Code Description Data Carey rce(s) Supporting Document(s) iron (fe) 96 ug/dL 50-170 Iron (Fe) [place] ([facility]) percent saturation 25.1 % 13.2-45.0 Percent Saturatio n [place] ([facility]) total iron binding capacity 382 ug/dL 250-450 Total Ir on Binding Capacity [facility] ([facility]) ID Date Data Source [id number] 09/04/2020 09:25:00 AM EST [place] ([facility]) Name Value Range Interpretation Code Description Data Carey rce(s) Supporting Document(s) hemoglobin 11.1 g/dL 12.0-15.5 Below low normal Hemoglobin [facility] ( [facility]) red blood count 4.12 10 4.00-5.40 Red Blood Count AT[place] NA ([facility]) white blood count 3.8 10 4.0-10.0 Below low normal White Blood Count [facility] ([facility]) mean corpuscular HGB conc 30.8 g/dL 32.0-36.5 Below low troy l Mean Corpuscular HGB Conc [facility] ([facility]) mean corpuscular hemoglobin 26.9 pg 27.0-33.0 Below low nor mal Mean Corpuscular Hemoglobin [facility] ([facility]) mean corpuscular volume 87.4 fL 80.0-96.0 Mean Corpusc ular Volume [facility] ([facility]) hematocrit 36.0 % 36.0-47.0 Hematocrit [facility] ([facility]) platelet count, automated 418 10 150-450 Platelet C ount, Automated [place] ([facility]) neutrophils % 40.5 % 36.0-66.0 Neutrophils % [place] ( [facility]) red cell distribution width 12.3 % 11.5-14.5 Red Cell Distribution Width [place] ([facility]) lymph % 43.5 % 24.0-44.0 Lymph % [place] ([facility]) immature granulocyte % 0.3 % 0-3.0 Immature Gran ulocyte % [place] ([facility]) mono % 8.0 % 0.0-5.0 Above high normal Vil[place] % [place] ([facility]) eos % 6.4 % 0.0-3.0 Above high normal Eos % [place] ([facility]) baso % 1.3 % 0.0-1.0 Above high normal Baso % [facility] ([facility]) lymph # 1.6 10 1.5-5.0 Lymph # [place] ([facility]) mono # 0.3 10 0.0-0.8 Vilas # [place] ([facility]) nucleated red blood cell % 0.0 % 0-0 Nucleated Red Blood Cell % [place] ([facility]) neutrophils # 1.5 10 1.5-8.5 Neutrophils # [place] ( [facility]) baso # 0.1 10 0.0-0.2 Baso # [place] ([facility]) eos # 0.2 10 0.0-0.5 Eos # [place] ([facility]) ID Date Data Source [id number] 09/02/2020 11:39:00 AM EST [facility] Name Value Range Interpretation Code Description Data Carey rce(s) Supporting Document(s) SARS coronavirus 2 RNA [facility] This lab was ordered by [facility] and reported by [facility]. ID Date Data Source [id number] 08/29/2020 09:00:00 AM EST [facility] Name Value Range Interpretation Code Description Data Carey rce(s) Supporting Document(s) SARS coronavirus 2 RNA [facility] This lab was ordered by [facility] and reported by [facility]. ID Date Data Source [id number] 08/19/2020 09:30:00 AM EST [facility] Name Value Range Interpretation Code Description Data Carey rce(s) Supporting Document(s) SARS coronavirus 2 RNA [facility] This lab was ordered by [facility] and reported by [facility]. ID Date Data Source [id number] 08/12/2020 10:30:00 AM EDT [facility] Name Value Range Interpretation Code Description Data Carey rce(s) Supporting Document(s) SARS coronavirus 2 RNA [facility] This lab was ordered by [facility] and reported by [facility]. ID Date Data Source [id number] 08/05/2020 02:38:00 PM EDT [facility] Name Value Range Interpretation Code Description Data Carey rce(s) Supporting Document(s) SARS coronavirus 2 RNA [facility] This lab was ordered by [facility] and reported by [facility]. ID Date Data Source [id number] 07/29/2020 11:30:00 AM EDT [facility] Name Value Range Interpretation Code Description Data Carey rce(s) Supporting Document(s) SARS coronavirus 2 RNA [facility] This lab was ordered by [facility] and reported by [facility]. ID Date Data Source [id number] 07/26/2020 04:00:37 PM EDT [facility] Name Value Range Interpretation Code Description Data Carey rce(s) Supporting Document(s) APPEARANCE U clear [facility] BILIRUBIN UR negative [facility] BLOOD UR DIP 3+ [facility] GLUCOSE, URN negative [facility] KETONES URN negative [facility] NITRITE URN negative [facility] PH URINE 6.0 [facility] PROTEIN, URN 0.15 [facility] SPEC GR URIN 1.030 [facility] UA COLOR yellow [facility] UROBILINOGEN 3.5 [facility] WBC DIPSTK U negative [facility] ID Date Data Source [id number] 07/26/2020 12:36:59 PM EDT [facility] Labs In-House Urine TestsDate/Time Colle cted: July 26, 2020 9:23AMTest Result Reference Range Normal ValueComments: Urine collected in officeEmelia Boss MA, July 26, 2020 12:38 PMBlood TestsDate/Time Collected: July 26, 2020 9:23 AMTest Result Reference Range Normal ValueComments: Blood drawn in office from left AC, tolerated wellEmelia Boss MA, July 26, 2020 12:38 PMAssessment & Plan Orders:[id number] - Venipuncture [CPT-53845] Name Value Range Interpretation Code Description Data Carey rce(s) Supporting Document(s) ID Date Data Source [id number] 07/26/2020 08:01:31 AM EDT [facility] Measurements & CalculationsHeight: 66.50 inches 168.91 cm 5 ft. 6.5 in.Weight: 242 pounds 110 kg Body Mass Index (BMI): 38.61BMI Interpretation: ObeseBody Surface Area (BSA): 2.18Weight Management Education Done (Nutrition/Physical Activity)Vital SignsTemperature: 98.2F tympanic Pulse Rate: 90 beats/minuteRespiratory Rate: 16 respirations/minuteBlood Pressure: 138/87 left arm sitting automaticO2 Saturation: 100% sittingVital Signs performed by: Alison Barajas MA, July 26, 2020 8:16 AMNurses Note 30 yo F NEW PE Pt, Pt reports occassional neck pain X 2 months (back of neck) rates 6/10 when it occurs.Pt reports occassional dizziness ( X 2.5 months ago)Pt reports frequent urination (X 2 months) only during the day.Pt denies pain at this time & also denies taking any meds at this time.Initial Intake Information From: patientRoom #: 13I nfectious Disease / Travel ScreeningRecent travel for you or any close contacts? NoHave you had any close contact with anyone diagnosed with or under investigation for COVID-19 (coronavirus)? NoFever? NoRespiratory symptoms: cough, cold, congestion, shortness of breath, difficulty breathing? NoLoss of smell? NoLoss of taste? NoSmoking, Tobacco, Vaping or Smoke Exposure StatusSmoke Status: never smokerTobacco Use: NoDo you vape? NoPassive Smoke Exposure: NoMenstrual HistoryLast Menstrual Period (LMP): 07/23/2020Any possibility of ? NoComments: Pt uses IUD (BC)Healthcare HistorySince your last office visit...Have you been admitted to the hospital? NoHave you been to an emergency room (ER) or urgent care clinic? NoHave you seen another healthcare provider? Yes - [facility] ([facility])Healthcare provider date reported today: 05/15/2020Have you seen a dentist? Yes - NoCoDental exam date reported today: 08/03/2018Intake performed by: Alison Barajas MA, July 26, 2020 8:06 AMRate Your HealthIn general, would you say your health is? FairPain AssessmentAre you currently having any pain which... You would like your provider to address? Yes Affects your activity level? NoDepression Screening - PHQ-2Over the last two weeks, have you... Had little interest or pleasure in doing things? Not at all Been feeling down, depressed, or hopeless? Not at all PHQ-2 Score: 0Anxiety Screening - KERI-2Over the last two weeks, have you been... Feeling nervous, anxious, or on edge? Not at all Unable to stop or control worrying? Not at all KERI-2 Score: 0Was there a time when the food you bought didn't last and you didn't have money to get more? Never truePatient Learning & Communication Needs Preferred learning style: visualPossible barriers: nonePatient's Language used in visit: YesLanguage: englishAssessment of health literacy: AdequatePRAPARE Sociodemographic Characteristics Race: Black or Ethnicity: Not or Preferred Language: EnglishFamily and Home Address: [address] [place] [address] What is your housing situation today? I have housing Are you worried about losing your housing? NoMoney and Resources What is the highest level of school that you have finished? some college Employed? 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 Denies Insecurity: food, utilities, clothing, exceptional children's teacher, phone, legal servicesWithin the past year was there a time when the food you bought didn't last and you didn't have money to get more? Never trueIn the past year, have you had trouble affording costs associated with health insurance (such as deductibles, co-payments, etc.)? NoSocial and Emotional Health How often do you see or talk to people that you care about and feel close to? More than 5 times a week How stressed are you? Not at allAdditional Optional Domains In the past 3 months, have you spent more than 2 nights in a row in a retirement, skilled nursing, mcfp center or juvenile correctional facility? No Has lack of transportation kept you from medical appointments or from getting your medications? NoIn the past year, have you had trouble getting any of the following when it was really needed (check all that apply)?noneIn the past year, have you had trouble paying the costs associated with health care or medicine (such as co-payments, costs for services, prices of medicines)? NoHow confident are you that you can control and manage most of your health problems? Very confident Are you a refugee? No (Country of origin: [facility]) Do you feel physically and emotionally safe where you live? Yes In the past year, have you been afraid of a partner, ex-partner? NoScreening, Brief Intervention, & Referral to Treatment (SBIRT)Pre-Screening Questions How many times have you have 4 or more drinks in a day? 0How many times have you used an illegal drug or used a prescription medication for a non-medical reason? 0Performed by: Alison Barajas MA, July 26, 2020 8:11 AMPatient History Medical History:Ovarian CystsSurgical History:No known surgical historyFamily History:Paternal Aunt (Cancer)Paternal Grandfather (Heart disease)Paternal Grandmother (Kidney dis, Diabetes)Social/Personal History: Chief Complaintannual exam/NEWHistory of Present Illness (HPI)30 yo female with no past known chronic medical conditions. Has not been to a PCP in 3 years. Does follow with [facility] for routine health maintenance and ovarian cysts. Last pap in April. Does note 2 month history of dizziness that she describes as "room spinning" that lasts for a few minutes. No known triggers. NO associated headache, weakness, vision changes, chest pain, p alpitations, SOB, dyspnea, syncope. Further notes for 2 months she has increased urinary frequency and urgency without dysuria, pelvic pain, vaginal symptoms, hematuria, flank pain, incontinence, delayed/incomplete empyting. Menses are regular. Has not tried anything for it. Denies nocturia. Further complains of intermittent neck pain in the back of the neck that is achy and stiff. Has not tried anything for it. No Radicular symptoms or weakness. No bowel concerns. Sleeps fairly well, does snore. Sometimes fatigued. Trying to work on diet and exercise. No other concerns or complaints.Transitions of Care InboundProblem ReviewProblem List was reviewed and/or updated during this visit.Medication Reconciliation & ReviewMedication List was reviewed and/or updated during this visit, including review of any nlzj-ali-xhkddnd medications, herbal therapies, and/or supplements. Patient has no known medications.Allergy ReviewAllergy List was reviewed and/or updated during this visit.Adult Preventive CareProvider Calculated and Reviewed all Clinical Protocols for patient today. Labs/Meds/Other Counseling-Nutrition and Physical Activity:BMI Interpretation: Obese (07/26/2020) Counseling: Done (07/26/2020) Physical Activity: Done (07/26/2020)Cancer Screening Pap Smear/HPV TestingReviewed: Previous Comments: last year in [place] (02/11/2018)Today's Comments: [facility] (04/2020)Review of Systems General: Complains of dizziness. Denies loss of appetite, chills, fatigue, fever, continued fever, headache, feeling ill, sweats, night sweats, sleep disturbances, weight loss. Eyes: Denies blurring of vision, double vision, irritation, discharge, vision loss, eye pain, eye swelling, droopy eyelid, sensitivity to light, redness, itching. Ears/Nose/Throat: Denies earache, ear discharge, ringing in ears, decreased hearing, nasal congestion. Cardiovascular: Denies chest pain, palpitations, feeling faint, trouble breathing w/exertion, SOB upon lying down, SOB at night, peripheral edema, elevated blood pressure, decreased heart rate. Respiratory: Denies cough, difficulty breathing, shortness of breath, excessive sputum, coughing up blood, wheezing, chest pain. Gastrointestinal: Denies nausea, vomiting, bleeding, burning, itching, irritation, cramps, diarrhea, bloody diarrhea, watery diarrhea, constipation, pain or discomfort, feeling any lumps or bumps, pain with BM, pain during receptive anal sex, change in bowel habits, fecal incontinence, abdominal pain, blood in stool, black or tarry stools, jaundice, heartburn, urge to defecate. Genitourinary: Complains of urinary frequency, urinary urgency. Denies urinary incontinence, pain with urination, burning with urination, urinary hesitancy, urinary urgency at night, incomplete emptying, blood in urine, absence of menstrual period, heavy menstrual period, prolonged menstrual period, pelvic pain, abnormal vaginal bleeding, painful intercourse, vaginal discharge, vaginal sores, vaginal itching, genital foul odor, genital sores, genital burning, genital itching, genital warts, anal discharge, anal sores, anal warts. Skin: Denies rash, hives, redness, itching. Neurologic: Denies muscle impairment, weakness, numbness/tingling. Psychiatric: Denies depression, anxiety. Endocrine: Denies cold intolerance, heat intolerance, excessive thirst, excessive hunger, excessive urination, weight loss, weight gain. Heme/Lymphatic: Denies abnormal bruising, bleeding, enlarged lymph nodes. Allergic/Immunologic: Denies hives, swelling. Physical ExamGeneral Appearance: well nourished, well hydrated, no acute distressEyes, External: conjunctivae and lids normal, EOMI. No nystagmus.External Ears: normal, no lesions or deformitiesHearing: grossly intactOtoscopy: canals clear, tympanic membranes intact, no fluid, light reflex intact bilaterallyExternal Nose: normal, no lesions or deformitiesNasal: mucosa, septum, and turbinates normal, nares patentLips/Teeth/Gums: normal dentition, no labial, tongue or mucosal lesions, no white patches, no swelling, no caries, no gingival hypertrophy, no bleeding gumsPharynx: tongue normal, posterior pharynx without erythema or exudate, no thrush/aphthous ulcerNeck: supple, no masses, trachea midline, full range of motion of neck. Negative Spurlings.Thyroid: no nodules, masses, tenderness, or enlargementRespiratory, Auscultation: clear to auscultation bilaterally; no rales, rhonchi, or wheezesRespiratory, Effort: no intercostal retractions or use of accessory musclesCardiovascular, Auscultation: S1, S2 audible; no murmur, rub, or gallop; RRRPeripheral Circulation: no clubbing, cyanosis, edema, or varicositiesAbdomen: soft, non-tender, no masses, bowel sounds normalGait & Station: normalSkin, Inspection: no rashes, lesions, or ulcerationsOrientation: oriented to time, place, and personMood & Affect: no depression, anxiety, or agitationJudgment & Insight: intactCare Management Plan Transitions of CareInboundRate Your HealthIn general, would you say your health is? FairAssessment & Plan Problems:Added: Encounter for immunization (ICD-V05.9) (HYJ40-B37)Neck pain (ICD-723.1) (XBG47-N63.2)Encounter for general adult medical examination with abnormal findings (ICD-V70.0) (UYR12-T04.01) Assessment: Health maintenance updated. Tdap given. Discussed healthy lifestyle choices.Increased frequency of urination (ICD-788.41) (CVX11-D40.0) Assessment: possible inflammatory vs. irritative. labs ordered. UA wnl. will consider urology referral.Dizziness and giddiness (ICD-780.4) (URA64-M53) Assessment: likely vertigo. labs ordered. will proceed based on testing. discussed s/s that would warrant ED eval. consider PTBMI 38.0-38.9 (ICD-V85.38) (AUM89-N19.38) Assessment: discussed healthy lifestyle choicesObesity (ICD- 278.00) (THK96-T35.09) Assessment: as aboveAssessment not SavedNeck pain (QQZ19-O28.2): likely positional and strain related. she declines PT. no radicular symptoms. discussed supportive care and exercises at home. Follow up if not improving. Allergies:* PEROCET (Critical)Orders:COMP METABOLIC PANEL [CPT-03086] CBC W/DIFF [CPT-92555] HgBA1c [CPT-61191] LIPID PANEL [CPT-05523] TSH [CPT-15937] URINALYSIS [CPT-37223] Tdap (5) [CPT-33924] 33879 - Immo Admin (over 19 yrs), 1st Vaccine [CPT-94961] IM or SQ Injection [CPT-92307] Preventive, New, (18-39) [CPT-76193] Adult - Ofc Vst, NEW, Level III [CPT-06109] Follow-Up Return to clinic: in 30 days for follow upClinical Visit Summary DeclinedVaccines Administered/Entered:Vaccination Group: TdapSeries: 1Vaccination: Boostrix - AdultMfr / Lot# / Exp.Date: GlaxoSmAccelitecKline / [id number] 07/25/2022mt. Given / Route / Site: 0.5 mL / IM / Left DeltoidNDC / CVX: [id number] / 115Administered Date: 07/26/2020 9:11VFC Eligibility: Non-VFC ClinicVIS Date: 01/17/2020Comments: Administered by: Maggy Moura LPN Labs In-House Urine TestsDate/Time Collected: July 26, 2020 8:30 AMDate/Time Received: July 26, 2020 8:30 AMTest Result Reference Range Normal ValueRoutine Urinalysis Color: yellow Yellow Appearance: clear Clear Leukocytes: negative Negative Nitrite: negative Negative Urobilinogen: 3.5 Negative Protein: 0.15 Negative pH: 6.0 5.0-6.5 Blood: 3+ Negative Specific [place]: 1.030 1.020>=1.030 Ketone: negative Negative Bilirubin: negative Negative Glucose: negative NegativeLoriAnn Jenn LOUIS, July 26, 2020 4:03 PMPRAPARE Sociodemographic Characteristics Race: Black or Ethnicity: Not or Preferred Language: EnglishAssessment & Plan Name Value Range Interpretation Code Description Data Carey rce(s) Supporting Document(s) ID Date Data Source PAP REQUEST FOR SERVICE 07/25/2020 12:40:56 PM EDT [facility]CW1 ([facility]) Name Value Range Interpretation Code Description Data Carey rce(s) Supporting Document(s) PAP REQUEST FOR SERVICE eCW1 ( [facility]) ID Date Data Source [id number] 07/22/2020 06:50:00 AM EDT [facility] Name Value Range Interpretation Code Description Data Carey rce(s) Supporting Document(s) SARS coronavirus 2 RNA [facility] This lab was ordered by [facility] and reported by [facility]. ID Date Data Source [id number] 07/15/2020 12:00:00 PM EDT [facility] Name Value Range Interpretation Code Description Data Carey rce(s) Supporting Document(s) SARS coronavirus 2 RNA [facility] This lab was ordered by [facility] and reported by [facility]. ID Date Data Source [id number] 07/08/2020 11:15:00 AM EDT [facility] Name Value Range Interpretation Code Description Data Carey rce(s) Supporting Document(s) SARS coronavirus 2 RNA [facility] This lab was ordered by [facility] and reported by [facility]. ID Date Data Source [id number] 07/01/2020 10:00:00 AM EDT [facility] Name Value Range Interpretation Code Description Data Carey rce(s) Supporting Document(s) SARS coronavirus 2 RNA [facility] This lab was ordered by [facility] and reported by [facility]. ID Date Data Source [id number] 06/26/2020 07:00:00 AM EDT [facility] Name Value Range Interpretation Code Description Data Carey rce(s) Supporting Document(s) SARS coronavirus 2 RNA [facility] This lab was ordered by [facility] and reported by [facility]. ID Date Data Source [id number] 06/17/2020 02:48:00 PM EDT [facility] Name Value Range Interpretation Code Description Data Carey rce(s) Supporting Document(s) SARS coronavirus 2 RNA [facility] This lab was ordered by [facility] and reported by [facility]. Procedure Social History No Information Vital Signs ID Date Data Source UNK Name Value Range Interpretation Code Description Data Source(s) Diastolic blood pressure 79 mm[Hg] 79 mm[Hg] [facility] ([facility]) Body height 67 [in_i] 67 [in_i] [facility] ([facility]) Body mass index (BMI) [Ratio] 37.6 kg/m2 37.6 k g/m2 [facility] ([facility]) Systolic blood pressure 123 mm[Hg] 123 mm[Hg] [facility] ([facility]) Body weight 3840 [oz_av] 3840 [oz_av] [facility] ([facility]) Diastolic blood pressure 76 mm[Hg] 76 mm[Hg] [facility] ([facility]) Body height 67 [in_i] 67 [in_i] [facility] ([facility]) Body mass index (BMI) [Ratio] 36.5 kg/m2 36.5 k g/m2 [facility] ([facility]) Systolic blood pressure 112 mm[Hg] 112 mm[Hg] A [facility] ([facility]) Body weight 3730 [oz_av] 3730 [oz_av] [facility] ([facility]) Diastolic blood pressure 76 mm[Hg] 76 mm[Hg] [facility] ([facility]) Body height 67 [in_i] 67 [in_i] [facility] ([facility]) Body mass index (BMI) [Ratio] 36.5 kg/m2 36.5 k g/m2 [facility] ([facility]) Systolic blood pressure 112 mm[Hg] 112 mm[Hg] A [place] ([facility]) Body weight 3730 [oz_av] 3730 [oz_av] [facility] ([facility]) Diastolic blood pressure 87 mm[Hg] 87 mm[Hg] [facility] ([facility]) Body height 66.5 [in_i] 66.5 [in_i] [facility] ([facility]) Body mass index (BMI) [Ratio] 38.61 kg/m2 38.61 kg/m2 [facility] ([facility]) Systolic blood pressure 138 mm[Hg] 138 mm[Hg] A THEN ([facility]) Body weight 3872 [oz_av] 3872 [oz_av] [facility] ([facility]) Patient Treatment Plan of Care Planned Activity Planned Date Details Description Data Source (s) Ondansetron 4 MG Disintegrating Oral Tablet [facility] ([facility]) Ondansetron 4 MG Disintegrating Oral Tablet [facility] ([facility])
[2021-08-15 20:34] LABS: BASO % 0.3 % (0.0-1.0); EOS % 0.2 % (0.0-3.0); HEMATOCRIT 33.8 % (36.0-47.0); HEMOGLOBIN 10.6 g/dl (12.0-15.5); LYMPH # 2.1 10^3/uL (1.5-5.0); LYMPH % 20.2 % (24.0-44.0); MEAN CORPUSCULAR HEMOGLOBIN 26.5 pg (27.0-33.0); MEAN CORPUSCULAR HGB CONC 31.4 g/dl (32.0-36.5); MEAN CORPUSCULAR VOLUME 84.5 fl (80.0-96.0); MONO # 0.5 10^3/uL (0.0-0.8); MONO % 4.5 % (2.0-8.0); NEUTROPHILS # 7.6 10^3/uL (1.5-8.5); NEUTROPHILS % 74.3 % (36.0-66.0); PLATELET COUNT, AUTOMATED 430 10^3/uL (150-450); WHITE BLOOD COUNT 10.2 10^3/uL (4.0-10.0)
--- OUTSIDE RECORDS SUMMARY | 2021-08-15 20:58 | CCD ---
Author Author [facility] Organization [facility] Address Unknown Phone Unavailable Care Team Providers Care Creative Services Coordinator Name Role Phone Matthew, Carrie EXCEPTIONAL STUDENT EDUCATION TEACHER EXCEPTIONAL STUDENT EDUCATION TEACHER Unavailable Unavailable Matthew, A Carrie EXCEPTIONAL STUDENT EDUCATION TEACHER Unavailable Unavailable Matthew, A Carrie EXCEPTIONAL STUDENT EDUCATION TEACHER Unavailable Unavailable Matthew, A Carrie EXCEPTIONAL STUDENT EDUCATION TEACHER Unavailable Unavailable Matthew, A Carrie EXCEPTIONAL STUDENT EDUCATION TEACHER Unavailable Unavailable Matthew, A Carrie EXCEPTIONAL STUDENT EDUCATION TEACHER Unavailable Unavailable Matthew, A Carrie EXCEPTIONAL STUDENT EDUCATION TEACHER Unavailable Unavailable Matthew, A Carrie EXCEPTIONAL STUDENT EDUCATION TEACHER Unavailable Unavailable Matthew, A Carrie EXCEPTIONAL STUDENT EDUCATION TEACHER Unavailable Unavailable Matthew, A Carrie EXCEPTIONAL STUDENT EDUCATION TEACHER Unavailable Unavailable Matthew, A Carrie EXCEPTIONAL STUDENT EDUCATION TEACHER Unavailable Unavailable Matthew, A Carrie EXCEPTIONAL STUDENT EDUCATION TEACHER Unavailable Unavailable Matthew, A Carrie EXCEPTIONAL STUDENT EDUCATION TEACHER Unavailable Unavailable Matthew, A Carrie EXCEPTIONAL STUDENT EDUCATION TEACHER Unavailable Unavailable Matthew, A Carrie EXCEPTIONAL STUDENT EDUCATION TEACHER Unavailable Unavailable Matthew, A Carrie EXCEPTIONAL STUDENT EDUCATION TEACHER Unavailable Unavailable Matthew, A Carrie EXCEPTIONAL STUDENT EDUCATION TEACHER Unavailable Unavailable Matthew, A Carrie EXCEPTIONAL STUDENT EDUCATION TEACHER Unavailable Unavailable Matthew, A Carrie EXCEPTIONAL STUDENT EDUCATION TEACHER Unavailable Unavailable Matthew, A Carrie EXCEPTIONAL STUDENT EDUCATION TEACHER Unavailable Unavailable Matthew, A Carrie EXCEPTIONAL STUDENT EDUCATION TEACHER Unavailable Unavailable Matthew, A Carrie EXCEPTIONAL STUDENT EDUCATION TEACHER Unavailable Unavailable Matthew, A Carrie EXCEPTIONAL STUDENT EDUCATION TEACHER Unavailable Unavailable Matthew, A Carrie EXCEPTIONAL STUDENT EDUCATION TEACHER Unavailable Unavailable Matthew, A Carrie EXCEPTIONAL STUDENT EDUCATION TEACHER Unavailable Unavailable Matthew, A Carrie EXCEPTIONAL STUDENT EDUCATION TEACHER Unavailable Unavailable Matthew, A Carrie EXCEPTIONAL STUDENT EDUCATION TEACHER Unavailable Unavailable Matthew, A Carrie EXCEPTIONAL STUDENT EDUCATION TEACHER Unavailable Unavailable Matthew, A Carrie EXCEPTIONAL STUDENT EDUCATION TEACHER Unavailable Unavailable Matthew, A Carrie EXCEPTIONAL STUDENT EDUCATION TEACHER Unavailable Unavailable Matthew, A Carrie EXCEPTIONAL STUDENT EDUCATION TEACHER Unavailable Unavailable Matthew, A Carrie EXCEPTIONAL STUDENT EDUCATION TEACHER Unavailable Unavailable Scordo, M Bella PA Unavailable [...] is protected by Article 27-F of the [facility] Public Health law. If you continue you may have access to information: Regarding HIV / AIDS; Provided by facilities licensed or operated by the [facility] Office of Mental Health; or Provided by the [facility] Office for People With Developmental Disabilities. If such information is present, then the following [facility] mandated warning applies: This information has been [...] law may result in a fine or long-term sentence or both. A general authorization for the release of medical or other information is NOT sufficient authorization for further disc losure. Encounters Encounter Providers Location Date Indications Data Source(s ) Bella Saha PA-C: [address] [place] [id number], Ph. Attender: Bella GARNER [facility] Medical 02/05/2021 12:00:00 AM EDT [facility]) Outpatient Attender: KAMILLE SIMENTAL FP 09/04/2020 08:20:01 A M EST [facility] Bella Saha PA-C: [address] [place] [address], Ph. Attender: Bella [facility] Medical 09/04/2020 12:00:00 AM EST [facility] ([facility]) Bella Saha PA-C: [address] [place] [address], Ph. Attender: Bella [facility] Medical 09/04/2020 12:00:00 AM EST [facility] ([facility]) Outpatient Attender: Carrie KUMAR 07/29/2020 07:4 4:03 AM EDT [facility] Outpatient Attender: KAMILLE KUMAR 07/29/2020 07:44:01 A M EDT [facility] Outpatient Attender: Carrie SIMENTAL FP 07/26/2020 02:0 1:01 PM EDT [facility] Outpatient Attender: KAMILLE KUMRA 07/26/2020 09:18:02 A M EDT [facility] Outpatient Attender: Carrie KUMAR 07/26/2020 09:1 7:01 AM EDT [facility] Outpatient Attender: KAMILLE KUMAR 07/26/2020 07:51:00 A M EDT [facility] Outpatient Attender: KAMILLE KUMAR 07/26/2020 07:50:00 A M EDT [facility] Outpatient Attender: KAMILLE KUMAR 07/26/2020 07:30:01 A M EDT [facility] Outpatient Attender: KAMILLE KUMAR 07/26/2020 07:29:01 A M EDT [facility] Outpatient Attender: KAMILLE KUMAR 07/17/2020 02:45:00 P M EDT [facility] Outpatient Attender: KAMILLE Castro EXCEPTIONAL STUDENT EDUCATION TEACHER FP 06/28/2020 01:46:01 P M EDT [facility] Immunizations Vaccine Date Status Description Data Source(s) COVID-19 VACCINE Moderna 02/28/2021 12:00:00 AM EDT completed [facility] Vaccine Series Complete: YESThis Data wa s Submitted to [facility] Via [employer]. COVID-19 VACCINE Moderna 01/31/2021 12:00:00 AM EDT completed [facility] Vaccine Series Complete: NOThis Data was Submitted to [facility] Via [employer]. Tdap 07/26/2020 12:00:00 AM EDT completed 07/26/2020 0.5 mL [facility] ([facility]) Medications Medication Brand Name Start Date Product [...] 4 MG Disintegrating Oral Tablet [facility] (No [facility]) Ondansetron 4 MG Disintegrating Oral Tab let ondansetron 4 mg disintegrating tablet DISSOLVE ONE TABLET ON TONGUE EVERY 6 TO 8 HOURS NEEDED FOR NAUSEA/VOMITING ondansetron 4 mg disintegrating tablet D ISSOLVE ONE TABLET ON TONGUE EVERY 6 TO 8 HOURS NEEDED FOR NAUSEA/VOMITING completed ondansetron 4 MG Disintegrating Oral Tablet [facility] (No [facility]) Insurance Providers Payer name Policy type / Coverage type Policy ID Covered constitution party ID Covered constitution party's relationship to carr Policy Carr Plan Information Managed Care - [facility] P [id number] S [id number] [place] [id number] SP [id number] SP [id number] Medicaid S [id number] S [id number] [facility] [id number] SP [id number] [facility] O [id number] S [id number] [facility] [id number] SP [id number] MEDICAID [id number] SP [id number] [facility] P [id number] S [id number] [facility] [id number] SP [id number] Sliding Fee Scale P UNAVAILABLE S UNAVAILABLE Problems, Conditions, and Diagnoses Code Display Name Description Problem Type Effective Dates Data Source(s) 723.1 Neck pain Neck pain 07/26/2020 09:16:27 AM ED T [facility] V70.0 Encounter for general adult medical exam ination with abnormal findings Encounter for general adult medical examination with abnormal findings 07/26/2020 09:16:27 AM EDT [facility] V05.9 Encounter for immunization Encounter for immunization 07/26/2020 09:16:27 AM EDT [facility] 788.41 Increased frequency of urination Increased frequency o f urination 07/26/2020 09:16:27 AM EDT [facility] 780.4 Dizziness and giddiness Dizziness and giddiness 07/26/2020 09:16:27 AM EDT [facility] V85.38 BMI 38.0-38.9 BMI 38.0-38.9 07/26/2020 09:16:27 AM EDT [facility] 278.00 Obesity Obesity 07/26/2020 09:16:27 AM ED T [facility] [id number] Procedure by method Procedure by Method Problem 1 12:00:00 AM EDT - 02/05/2021 12:00:00 AM EDT [place] ([facility]) [id number] Influenza vaccine needed Influenza Vaccine Needed Pro blem 07/26/2020 12:00:00 AM EDT - 02/05/2021 12:00:00 AM EDT [facility] ([facility]) [id number] Increased frequency of urination Increased Frequ ency of Urination Problem 07/26/2020 12:00:00 AM EDT - 02/05/2021 12:00:00 AM ED T [facility] ([facility]) [id number] Dizziness and giddiness Dizziness and Giddiness Proble m 07/26/2020 12:00:00 AM EDT - 02/05/2021 12:00:00 AM EDT [facility] ([facility]) 97785537 Neck pain Neck Pain Problem 07/26/2020 12:00:00 AM ED T [facility] ([facility]) 215980830 Body mass index 30+ - obesity Body Mass Index 30+ - Ob esity Problem 07/26/2020 12:00:00 AM EDT [facility] ([facility]) [id number] Simple obesity Simple Obesity Problem 07/26/2020 12:00: 00 AM EDT [facility] ([facility]) 50291192 Diarrhea Diarrhea Problem 02/11/2018 12:0 0:00 AM EDT - 02/05/2021 12:00:00 AM EDT [facility] ([facility]) Surgeries/Procedures No Information Results ID Date Data Source [id number] 08/05/2021 12:00:00 AM EDT [facility] Name Value Range Interpretation Code Description Data Carey rce(s) Supporting Document(s) SARS [facility] 2 [facility] was ordered by [facility] and reported by [facility]. ID Date Data Source [id number] 08/04/2021 10:13:00 AM EDT [facility] Name Value Range Interpretation Code Description Data Carey rce(s) Supporting Document(s) SARS coronavirus 2 RNA [Presence] in Res piratory specimen by ANGLE with probe detection POSITIVE [facility] This lab was ordered by [facility] a nd reported by [facility]. ID Date Data Source [id number] 07/29/2021 12:00:00 AM EDT [facility] Name Value Range Interpretation Code Description Data Carey rce(s) Supporting Document(s) SARS coronavirus 2 Ag NEGATIVE [facility] This lab was ordered by [facility] and reported by [facility]. ID Date Data Source [id number] 07/22/2021 12:00:00 AM EDT [facility] Name Value Range Interpretation Code Description Data Carey rce(s) Supporting Document(s) SARS coronavirus 2 Ag NEGATIVE [facility] This lab was ordered by [facility] and reported by [facility]. ID Date Data Source [id number] 07/15/2021 12:00:00 AM EDT [facility] Name Value Range Interpretation Code Description Data Carey rce(s) Supporting Document(s) SARS coronavirus 2 Ag NEGATIVE [facility] This lab was ordered by [facility] and reported by [facility]. ID Date Data Source [id number] 07/08/2021 12:00:00 AM EDT [facility] Name Value Range Interpretation Code Description Data Carey rce(s) Supporting Document(s) SARS coronavirus 2 Ag NEGATIVE [facility] This lab was ordered by [facility] and reported by [facility]. ID Date Data Source [id number] 06/26/2021 12:00:00 AM EDT [facility] Name Value Range Interpretation Code Description Data Carey rce(s) Supporting Document(s) SARS coronavirus 2 Ag NEGATIVE [facility] This lab was ordered by [facility] and reported by [facility]. ID Date Data Source [id number] 03/27/2021 12:00:00 AM EDT [facility] Name Value Range Interpretation Code Description Data Carey rce(s) Supporting Document(s) SARS coronavirus 2 Ag NEGATIVE [facility] This lab was ordered by [facility] and reported by [facility]. ID Date Data Source [id number] 03/18/2021 12:00:00 AM EDT [facility] Name Value Range Interpretation Code Description Data Carey rce(s) Supporting Document(s) SARS coronavirus 2 Ag NEGATIVE [facility] This lab was ordered by [facility] and reported by [facility]. ID Date Data Source [id number] 03/10/2021 11:27:00 AM EDT [facility] Name Value Range Interpretation Code Description Data Carey rce(s) Supporting Document(s) SARS-CoV-2 (COVID-19) RNA [Presence] in Respiratory specimen by ANGLE with probe detection Not Detected [facility] This lab was ordered by [facility] and reported by [employer]. ID Date Data Source [id number] 03/03/2021 02:22:00 PM EDT [facility] Name Value Range Interpretation Code Description Data Carey rce(s) Supporting Document(s) SARS-CoV-2 (COVID-19) RNA [Presence] in Respiratory specimen by ANGLE with probe detection Not Detected [facility] This lab was ordered by [facility] and reported by [employer]. ID Date Data Source [id number] 02/27/2021 12:00:00 AM EDT [facility] Name Value Range Interpretation Code Description Data Carey rce(s) Supporting Document(s) SARS coronavirus 2 Ag NEGATIVE [facility] This lab was ordered by [facility] and reported by [facility]. ID Date Data Source [id number] 02/24/2021 01:38:00 PM EDT [facility] Name Value Range Interpretation Code Description Data Carey rce(s) Supporting Document(s) SARS-CoV-2 (COVID-19) RNA [Presence] in Respiratory specimen by ANGLE with probe detection Not Detected [facility] This lab was ordered by [facility] and reported by [employer]. ID Date Data Source [id number] 02/17/2021 05:49:00 AM EDT [facility] Name Value Range Interpretation Code Description Data Carey rce(s) Supporting Document(s) SARS-CoV-2 (COVID-19) RNA [Presence] in Respiratory specimen by ANGLE with probe detection Not Detected [facility] This lab was ordered by [facility] and reported by [employer] ID Date Data Source [id number] 02/10/2021 12:49:00 PM EDT [facility] Name Value Range Interpretation Code Description Data Carey rce(s) Supporting Document(s) SARS-CoV-2 (COVID-19) RNA [Presence] in Respiratory specimen by ANGLE with probe detection Not Detected [facility] This lab was ordered by [facility] and reported by [employer] ID Date Data Source [id number] 02/03/2021 12:56:00 PM EDT [facility] Name Value Range Interpretation Code Description Data Carey rce(s) Supporting Document(s) SARS-CoV-2 (COVID-19) RNA [Presence] in Respiratory specimen by ANGLE with probe detection Not Detected [facility] This lab was ordered by [facility] and reported by [employer] ID Date Data Source [id number] 01/27/2021 10:21:00 AM EDT [facility] Name Value Range Interpretation Code Description Data Carey rce(s) Supporting Document(s) SARS-CoV-2 (COVID-19) RNA [Presence] in Respiratory specimen by ANGLE with probe detection Not Detected [facility] This lab was ordered by [facility] and reported by [employer]. ID Date Data Source [id number] 01/20/2021 09:21:00 AM EDT [facility] Name Value Range Interpretation Code Description Data Carey rce(s) Supporting Document(s) SARS-CoV-2 (COVID-19) RNA [Presence] in Respiratory specimen by ANGLE with probe detection Not Detected [facility] This lab was ordered by [facility] and reported by [employer] ID Date Data Source [id number] 01/13/2021 12:30:00 PM EDT [facility] Name Value Range Interpretation Code Description Data Carey rce(s) Supporting Document(s) SARS-CoV-2 (COVID-19) RNA [Presence] in Respiratory specimen by ANGLE with probe detection Not Detected [facility] This lab was ordered by [facility] and reported by [employer] ID Date Data Source [id number] 01/06/2021 05:20:00 AM EDT [facility] Name Value Range Interpretation Code Description Data Carey rce(s) Supporting Document(s) SARS coronavirus 2 RNA Not Detected [facility] This lab was ordered by [facility] and reported by [employer]. ID Date Data Source [id number] 12/30/2020 01:30:00 PM EDT [facility] Name Value Range Interpretation Code Description Data Carey rce(s) Supporting Document(s) SARS coronavirus 2 RNA Not Detected [facility] This lab was ordered by [facility] and reported by [facility]. ID Date Data Source [id number] 12/23/2020 12:23:00 PM EST [facility] Name Value Range Interpretation Code Description Data Carey rce(s) Supporting Document(s) SARS coronavirus 2 RNA Not Detected [facility] This lab was ordered by [facility] and reported by [facility]. ID Date Data Source [id number] 12/09/2020 11:00:00 AM EST [facility] Name Value Range Interpretation Code Description Data Carey rce(s) Supporting Document(s) SARS coronavirus 2 RNA Not Detected [facility] [place] This lab was ordered by [facility] and reported by [facility]. ID Date Data Source [id number] 12/05/2020 12:00:00 AM EST [facility] Name Value Range Interpretation Code Description Data Carey rce(s) Supporting Document(s) SARS coronavirus 2 Ag NEGATIVE [facility] This lab was ordered by [facility] and reported by [facility]. ID Date Data Source [id number] 12/02/2020 01:00:00 PM EST [facility] Name Value Range Interpretation Code Description Data Carey rce(s) Supporting Document(s) SARS coronavirus 2 RNA Not Detected [facility] [place] This lab was ordered by [facility] and reported by [facility]. ID Date Data Source [id number] 11/25/2020 02:00:00 PM EST [facility] Name Value Range Interpretation Code Description Data Carey rce(s) Supporting Document(s) SARS coronavirus 2 RNA Not Detected [facility] [place] This lab was ordered by [facility] and reported by [facility]. ID Date Data Source [id number] 11/21/2020 12:00:00 AM EST [facility] Name Value Range Interpretation Code Description Data Carey rce(s) Supporting Document(s) SARS coronavirus 2 Ag [facility] This lab was ordered by [facility] and reported by [facility]. ID Date Data Source [id number] 11/18/2020 01:00:00 PM EST [facility] Name Value Range Interpretation Code Description Data Carey rce(s) Supporting Document(s) SARS coronavirus 2 RNA Not Detected [facility] [place] This lab was ordered by [facility] and reported by [facility]. ID Date Data Source [id number] 11/14/2020 12:00:00 AM EST [facility] Name Value Range Interpretation Code Description Data Carey rce(s) Supporting Document(s) SARS coronavirus 2 Ag NEGATIVE [facility] This lab was ordered by [facility] and reported by [facility]. ID Date Data Source [id number] 11/11/2020 12:00:00 PM EST [facility] Name Value Range Interpretation Code Description Data Carey rce(s) Supporting Document(s) SARS coronavirus 2 RNA Not Detected [facility] [place] This lab was ordered by [facility] and reported by [facility]. ID Date Data Source [id number] 11/07/2020 12:00:00 AM EST [facility] Name Value Range Interpretation Code Description Data Carey rce(s) Supporting Document(s) SARS coronavirus 2 Ag Negative [facility] This lab was ordered by [facility] and reported by [facility]. ID Date Data Source [id number] 11/04/2020 02:52:00 PM EST [facility] Name Value Range Interpretation Code Description Data Carey rce(s) Supporting Document(s) SARS coronavirus 2 RNA Not Detected [facility] This lab was ordered by [facility] and reported by [facility]. ID Date Data Source [id number] 10/31/2020 12:00:00 AM EST [facility] Name Value Range Interpretation Code Description Data Carey rce(s) Supporting Document(s) SARS-CoV2 Rapid Antigen Negative [facility] This lab was ordered by [facility] and reported by [facility]. ID Date Data Source [id number] 10/28/2020 02:30:00 PM EST [facility] Name Value Range Interpretation Code Description Data Carey rce(s) Supporting Document(s) SARS coronavirus 2 RNA Not Detected [facility] [place] This lab was ordered by [facility] and reported by [facility]. ID Date Data Source [id number] 10/21/2020 02:00:00 PM EST [facility] Name Value Range Interpretation Code Description Data Carey rce(s) Supporting Document(s) SARS coronavirus 2 RNA Not Detected [facility] [place] This lab was ordered by [facility] and reported by [facility]. ID Date Data Source [id number] 10/14/2020 12:45:00 PM EST [facility] Name Value Range Interpretation Code Description Data Carey rce(s) Supporting Document(s) SARS coronavirus 2 RNA [facility] This lab was ordered by [facility] and reported by [facility]. ID Date Data Source [id number] 10/04/2020 12:00:00 AM EST [facility] Name Value Range Interpretation Code Description Data Carey rce(s) Supporting Document(s) SARS-CoV2 Rapid Antigen [facility] This lab was ordered by [facility] and reported by [facility]. ID Date Data Source [id number] 09/30/2020 11:00:00 AM EST [facility] Name Value Range Interpretation Code Description Data Carey rce(s) Supporting Document(s) SARS coronavirus 2 RNA [facility] This lab was ordered by [facility] and reported by [facility]. ID Date Data Source [id number] 09/23/2020 05:17:00 AM EST [facility] Name Value Range Interpretation Code Description Data Carey rce(s) Supporting Document(s) SARS coronavirus 2 RNA [facility] This lab was ordered by [facility] and reported by [facility]. ID Date Data Source [id number] 09/16/2020 10:23:00 AM EST [facility] Name Value Range Interpretation Code Description Data Carey rce(s) Supporting Document(s) SARS coronavirus 2 RNA [facility] This lab was ordered by [facility] and reported by [facility]. ID Date Data Source [id number] 09/09/2020 11:00:00 AM EST [facility] Name Value Range Interpretation Code Description Data Carey rce(s) Supporting Document(s) SARS coronavirus 2 RNA [facility] This lab was ordered by [facility] and reported by [facility]. ID Date Data Source [id number] 09/04/2020 09:25:00 AM EST [place] ([facility]) Name Value Range Interpretation Code Description Data Carey rce(s) Supporting Document(s) ferritin 17 NG/mL 8-252 Ferritin [place] ([facility]) ID Date Data Source [id number] 09/04/2020 09:25:00 AM EST [facility] ([facility]) Name Value Range Interpretation Code Description Data Carey rce(s) Supporting Document(s) iron (fe) 96 ug/dL 50-170 Iron (Fe) [place] ([facility]) percent saturation 25.1 % 13.2-45.0 Percent Saturatio n [facility] ([facility]) total iron binding capacity 382 ug/dL 250-450 Total Ir on Binding Capacity [facility] ([facility]) ID Date Data Source [id number] 09/04/2020 09:25:00 AM EST [place] ([facility]) Name Value Range Interpretation Code Description Data Carey rce(s) Supporting Document(s) hemoglobin 11.1 g/dL 12.0-15.5 Below low normal Hemoglobin [facility] ( [facility]) red blood count 4.12 10 4.00-5.40 Red Blood Count [facility] [place] ([facility]) white blood count 3.8 10 4.0-10.0 Below low normal White Blood Count [facility] ([facility]) mean corpuscular HGB conc 30.8 g/dL 32.0-36.5 Below low troy l Mean Corpuscular HGB Conc [facility] ([facility]) mean corpuscular hemoglobin 26.9 pg 27.0-33.0 Below low nor mal Mean Corpuscular Hemoglobin [facility] ([facility]) mean corpuscular volume 87.4 fL 80.0-96.0 Mean Corpusc ular Volume [facility] ([facility]) hematocrit 36.0 % 36.0-47.0 Hematocrit [facility] ([facility]) platelet count, automated 418 10 150-450 Platelet C ount, Automated [facility] ([facility]) neutrophils % 40.5 % 36.0-66.0 Neutrophils % [facility] ( [facility]) red cell distribution width 12.3 % 11.5-14.5 Red Cell Distribution Width [facility] ([facility]) lymph % 43.5 % 24.0-44.0 Lymph % [facility] ([facility]) immature granulocyte % 0.3 % 0-3.0 Immature Gran ulocyte % [facility] ([facility]) mono % 8.0 % 0.0-5.0 Above high normal Webb % [facility] ([facility]) eos % 6.4 % 0.0-3.0 Above high normal Eos % [facility] ([facility]) baso % 1.3 % 0.0-1.0 Above high normal Baso % [facility] ([facility]) lymph # 1.6 10 1.5-5.0 Lymph # [facility] ([facility]) mono # 0.3 10 0.0-0.8 Webb # [facility] ([facility]) nucleated red blood cell % 0.0 % 0-0 Nucleated Red Blood Cell % [facility] ([facility]) neutrophils # 1.5 10 1.5-8.5 Neutrophils # [facility] ( [facility]) baso # 0.1 10 0.0-0.2 Baso # [facility] ([facility]) eos # 0.2 10 0.0-0.5 Eos # [facility] ([facility]) ID Date Data Source [id number] 09/02/2020 11:39:00 AM EST [facility] Name Value Range Interpretation Code Description Data Carey rce(s) Supporting Document(s) SARS coronavirus 2 RNA [facility] This lab was ordered by [facility] and reported by [facility]. ID Date Data Source [id number] 08/29/2020 09:00:00 AM EST [facility] Name Value Range Interpretation Code Description Data Carey rce(s) Supporting Document(s) SARS coronavirus 2 RNA [facility] This lab was ordered by [facility] and reported by [facility]. ID Date Data Source [id number] 08/19/2020 09:30:00 AM EST [facility] Name Value Range Interpretation Code Description Data Carey rce(s) Supporting Document(s) SARS coronavirus 2 RNA [facility] This lab was ordered by [facility] and reported by [facility]. ID Date Data Source [id number] 08/12/2020 10:30:00 AM EDT [facility] Name Value Range Interpretation Code Description Data Carey rce(s) Supporting Document(s) SARS coronavirus 2 RNA [facility] This lab was ordered by [facility] and reported by [facility]. ID Date Data Source [id number] 08/05/2020 02:38:00 PM EDT [facility] Name Value Range Interpretation Code Description Data Carey rce(s) Supporting Document(s) SARS coronavirus 2 RNA [facility] This lab was ordered by [facility] and reported by [facility]. ID Date Data Source [id number] 07/29/2020 11:30:00 AM EDT [facility] Name Value Range Interpretation Code Description Data Carey rce(s) Supporting Document(s) SARS coronavirus 2 RNA [facility] This lab was ordered by [facility] and reported by [facility]. ID Date Data Source [id number] 07/26/2020 04:00:37 PM EDT [facility] Name Value Range Interpretation Code Description Data Carey rce(s) Supporting Document(s) APPEARANCE U clear [facility] BILIRUBIN UR negative [facility] BLOOD UR DIP 3+ [facility] GLUCOSE, URN negative [facility] KETONES URN negative [facility] NITRITE URN negative [facility] PH URINE 6.0 [facility] PROTEIN, URN 0.15 [facility] SPEC GR URIN 1.030 [facility] UA COLOR yellow [facility] UROBILINOGEN 3.5 [facility] WBC DIPSTK U negative [facility] ID Date Data Source [id number] 07/26/2020 12:36:59 PM EDT [facility] Labs In-House Urine TestsDate/Time Colle cted: July 26, 2020 9:23AMTest Result Reference Range Normal ValueComments: Urine collected in officeEmelia Boss MA, July 26, 2020 12:38 PMBlood TestsDate/Time Collected: July 26, 2020 9:23 AMTest Result Reference Range Normal ValueComments: Blood drawn in office from left AC, tolerated wellEmelia Boss MA, July 26, 2020 12:38 PMAssessment & Plan Orders:[id number] - Venipuncture [CPT-07534] Name Value Range Interpretation Code Description Data Carey rce(s) Supporting Document(s) ID Date Data Source [id number] 07/26/2020 08:01:31 AM EDT [facility] Measurements & CalculationsHeight: 66.50 inches [...] or Preferred Language: EnglishFamily and Home Address: [address] [place] [address] What is your housing situation today? I [...] really needed? Denies Insecurity: food, utilities, clothing, director of early childhood education, phone, legal servicesWithin the past year was [...] 2 nights in a row in a long-term, usp, jail center or juvenile correctional facility? No Has [...] you a refugee? No (Country of origin: [facility]) Do you feel physically and emotionally safe [...] PCP in 3 years. Does follow with [facility] for routine health maintenance and ovarian cysts. [...] during this visit, including review of any [id number]-[id number] medications, herbal therapies, and/or supplements. Patient has no known medications.Allergy ReviewAllergy List was reviewed and/or updated during this visit.Adult Preventive CareProvider Calculated and Reviewed all Clinical Protocols for patient today. Labs/Meds/Other Counseling-Nutrition and Physical Activity:BMI Interpretation: Obese (07/26/2020) Counseling: Done (07/26/2020) Physical Activity: Done (07/26/2020)Cancer Screening Pap Smear/HPV TestingReviewed: Previous Comments: last year in [place] (02/11/2018)Today's Comments: Pap [facility] (04/2020)Review of Systems General: Complains of dizziness. [...] & Plan Problems:Added: Encounter for immunization (ICD-V05.9) ([id number])Neck pain (ICD-723.1) (UPI46-C39.2)Encounter for general adult medical examination with abnormal findings (ICD-V70.0) (FMD87-R47.01) Assessment: Health maintenance updated. Tdap given. Discussed healthy lifestyle choices.Increased frequency of urination (ICD-788.41) (GDB57-U88.0) Assessment: possible inflammatory vs. irritative. labs ordered. UA wnl. will consider urology referral.Dizziness and giddiness (ICD-780.4) (NBN49-X89) Assessment: likely vertigo. labs ordered. will proceed based on testing. discussed s/s that would warrant ED eval. consider PTBMI 38.0-38.9 (ICD-V85.38) (EXU81-B33.38) Assessment: discussed healthy lifestyle choicesObesity (ICD- 278.00) (GFC54-C87.09) Assessment: as aboveAssessment not SavedNeck pain (NCY44-Y55.2): likely positional and strain related. she declines PT. no radicular symptoms. discussed supportive care and exercises at home. Follow up if not improving. Allergies:* PEROCET (Critical)Orders:COMP METABOLIC PANEL [CPT-90019] CBC W/DIFF [CPT-91733] HgBA1c [CPT-89378] LIPID PANEL [CPT-48149] TSH [CPT-63249] URINALYSIS [CPT-30962] Tdap (5) [CPT-25268] 03605 - Immo Admin (over 19 yrs), 1st Vaccine [CPT-78798] IM or SQ Injection [CPT-88912] Preventive, New, (18-39) [CPT-84141] Adult - Ofc Vst, NEW, Level III [CPT-59724] Follow-Up Return to clinic: in 30 days for follow upClinical Visit Summary DeclinedVaccines Administered/Entered:Vaccination Group: TdapSeries: 1Vaccination: Boostrix - AdultMfr / Lot# / Exp.Date: [employer] / [id number] 07/25/2022mt. Given / Route / Site: 0.5 mL / IM / Left DeltoidNDC / CVX: [id number] / 115Administered Date: 07/26/2020 9:11VFC Eligibility: Non-VFC ClinicVIS Date: 01/17/2020Comments: Administered by: Maggy Moura LPN Labs In-House Urine TestsDate/Time Collected: July 26, 2020 8:30 AMDate/Time Received: July 26, 2020 8:30 AMTest Result Reference Range Normal ValueRoutine Urinalysis Color: yellow Yellow Appearance: clear Clear Leukocytes: negative Negative Nitrite: negative Negative Urobilinogen: 3.5 Negative Protein: 0.15 Negative pH: 6.0 5.0-6.5 Blood: 3+ Negative Specific Callands: 1.030 1.020>=1.030 Ketone: negative Negative Bilirubin: negative Negative Glucose: negative NegativeLoriAnn Jenn L[place]IS, July 26, 2020 4:03 PMPRAPARE Sociodemographic Characteristics Race: Black or Ethnicity: Not or Preferred Language: EnglishAssessment & Plan Name Value Range Interpretation Code Description Data Carey rce(s) Supporting Document(s) ID Date Data Source PAP REQUEST FOR SERVICE 07/25/2020 12:40:56 PM EDT eCW1 ([facility]) Name Value Range Interpretation Code Description Data Carey rce(s) Supporting Document(s) PAP REQUEST FOR SERVICE eCW1 ( [facility]) ID Date Data Source [id number] 07/22/2020 06:50:00 AM EDT [facility] Name Value Range Interpretation Code Description Data Carey rce(s) Supporting Document(s) SARS coronavirus 2 RNA [facility] This lab was ordered by [facility] and reported by [facility]. ID Date Data Source [id number] 07/15/2020 12:00:00 PM EDT [facility] Name Value Range Interpretation Code Description Data Carey rce(s) Supporting Document(s) SARS coronavirus 2 RNA [facility] This lab was ordered by [facility] and reported by [facility]. ID Date Data Source [id number] 07/08/2020 11:15:00 AM EDT [facility] Name Value Range Interpretation Code Description Data Carey rce(s) Supporting Document(s) SARS coronavirus 2 RNA [facility] This lab was ordered by [facility] and reported by [facility]. ID Date Data Source [id number] 07/01/2020 10:00:00 AM EDT [facility] Name Value Range Interpretation Code Description Data Carey rce(s) Supporting Document(s) SARS coronavirus 2 RNA [facility] This lab was ordered by [facility] and reported by [facility]. ID Date Data Source [id number] 06/26/2020 07:00:00 AM EDT [facility] Name Value Range Interpretation Code Description Data Carey rce(s) Supporting Document(s) SARS coronavirus 2 RNA [facility] This lab was ordered by [facility] and reported by [facility]. ID Date Data Source [id number] 06/17/2020 02:48:00 PM EDT [facility] Name Value Range Interpretation Code Description Data Carey rce(s) Supporting Document(s) SARS coronavirus 2 RNA [facility] This lab was ordered by [facility] and reported by [facility]. Procedure Social History No Information Vital Signs ID Date Data Source UNK Name Value Range Interpretation Code Description Data Source(s) Body mass index (BMI) [Ratio] 37.6 kg/m2 37.6 k g/m2 [facility] ([facility]) Body height 67 [in_i] 67 [in_i] [facility] ([facility]) Body weight 3840 [oz_av] 3840 [oz_av] [facility] ([facility]) Diastolic blood pressure 79 mm[Hg] 79 mm[Hg] [facility] ([facility]) Systolic blood pressure 123 mm[Hg] 123 mm[Hg] A [facility] ([facility]) Diastolic blood pressure 76 mm[Hg] 76 mm[Hg] [facility] ([facility]) Body height 67 [in_i] 67 [in_i] [facility] ([facility]) Body mass index (BMI) [Ratio] 36.5 kg/m2 36.5 k g/m2 [facility] ([facility]) Systolic blood pressure 112 mm[Hg] 112 mm[Hg] A [facility] ([facility]) Body weight 3730 [oz_av] 3730 [oz_av] [facility] ([facility]) Diastolic blood pressure 76 mm[Hg] 76 mm[Hg] [facility] ([facility]) Body height 67 [in_i] 67 [in_i] [facility] ([facility]) Body mass index (BMI) [Ratio] 36.5 kg/m2 36.5 k g/m2 [facility] ([facility]) Systolic blood pressure 112 mm[Hg] 112 mm[Hg] A [facility] ([facility]) Body weight 3730 [oz_av] 3730 [oz_av] [facility] ([facility]) Body weight 3872 [oz_av] 3872 [oz_av] [facility] ([facility]) Diastolic blood pressure 87 mm[Hg] 87 mm[Hg] [facility] ([facility]) Body height 66.5 [in_i] 66.5 [in_i] [facility] ([facility]) Body mass index (BMI) [Ratio] 38.61 kg/m2 38.61 kg/m2 [facility] ([facility]) Systolic blood pressure 138 mm[Hg] 138 mm[Hg] A [facility] ([facility]) Patient Treatment Plan of Care Planned Activity Planned Date Details Description Data Source (s) Ondansetron 4 MG Disintegrating Oral Tablet [facility] ([facility]) Ondansetron 4 MG Disintegrating Oral Tablet [facility] ([facility])
[2021-08-15 21:08] LABS: ALBUMIN 3.6 GM/DL (3.2-5.2); BILIRUBIN,DIRECT 0.1 MG/DL (0.0-0.2); BILIRUBIN,TOTAL 0.4 MG/DL (0.2-1.0); TOTAL PROTEIN 7.7 GM/DL (6.4-8.2)
--- NOTE | 2021-08-15 23:02 | REPVR ---
PROCEDURE INFORMATION: Exam: US First Trimester, Transabdominal and US , Transvaginal Exam date and time: 08/15/2021 10:07 PM Age: 31 years old Clinical indication: Other: RT adnexal pain; Gestational age or lmp: Unk; ; Additional info: Nausea, pelvic pain, iud placement, +hcg TECHNIQUE: Imaging protocol: Real-time transabdominal obstetrical ultrasound of the maternal pelvis and a first trimester , less than 14 weeks 0 days, with image documentation. Transvaginal imaging was used for better evaluation of the fetus, adnexa, and/or cervix. COMPARISON: No relevant prior studies available. FINDINGS: Gestation: No intrauterine gestational sac. MATERNAL: Uterus: The uterus measures 11.9 cm in its cephalocaudad dimension and 6.5 x 6.0 cm in its AP and lateral dimensions transabdominal. There is an IUD within the uterus in satisfactory position. The uterus measures 9.1 cm in its cephalocaudad dimension and 6.9 x 6.9 cm in its AP and lateral dimensions transvaginal. Cervix: Unremarkable. Right adnexa: The right ovary measures 4.7 x 5.0 x 5.0 cm with a large simple cystic structure measuring 3.7 x 3.1 x 4.6 cm and a smaller slightly more complex cyst measuring 1.7 x 1.3 x 1.7 cm. There is right ovarian color flow and normal Doppler waveform tracings. Small solid structure in the right adnexa measuring 1.4 x 1.9 x 1.3 cm. Left adnexa: The left ovary measures 2.0 x 2.8 x 1.5 cm and demonstrates color flow and normal Doppler waveform tracings. Intraperitoneal space: No intraperitoneal free fluid. Urinary bladder: The urinary bladder is incompletely distended measuring 2.6 x 2.8 x 4.6 cm. IMPRESSION: 1. No intrauterine gestational sac is identified. Findings may reflect recent spontaneous AB. Ectopic is not excluded. Serial beta hCG levels may be of benefit for further evaluation. 2. IUD in satisfactory position within the uterus. 3. The right ovary demonstrates a simple cyst measuring 3.7 x 3.1 x 4.6 cm and a smaller slightly more complex cyst or follicle measuring 17 x 17 x 13 mm. 4. Small solid right adnexal structure of uncertain etiology measuring 13 x 19 x 14 mm. If suspicion of ectopic persists, this may serve as a potential site. Electronically signed by: Edil Syed On 08/15/2021 23:01:43 PM
[2021-08-15 23:29] VITALS: BP 124/71
--- NOTE | 2021-08-16 17:36 | ED PDOC ---
Post-Departure Follow-Up dr jiménez faxed formal reportof pelvic us for fu Marjan Yin MD Aug 16, 2021 17:36
== END 2021-08-15 23:31 | disposition home or self-care (01) ==
LOC: M ED 16:52
DX: O26.899 Other specified pregnancy related conditions, unspecified trimester (principal); R10.2 Pelvic and perineal pain; Z97.5 Presence of (intrauterine) contraceptive device; O34.80 Maternal care for other abnormalities of pelvic organs, unspecified trimester; R05.9 Cough, unspecified; Z86.16 Personal history of COVID-19

== ENCOUNTER → 2021-08-18 | Outpatient (CLI) | payer OTHER | LOC: M LAB 08:52 | PROVIDERS: ATTEND Physician Assistant Medical | DX: Z32.00 Encounter for pregnancy test, result unknown (principal); Z97.5 Presence of (intrauterine) contraceptive device ==

== ENCOUNTER → 2021-08-19 | Outpatient (CLI) | payer OTHER ==
[2021-08-19 15:20] LABS: HEMATOCRIT 32.4 % (36.0-47.0); MEAN CORPUSCULAR HEMOGLOBIN 26.5 pg (27.0-33.0); MEAN CORPUSCULAR HGB CONC 30.9 g/dl (32.0-36.5); MEAN CORPUSCULAR VOLUME 85.7 fl (80.0-96.0); PLATELET COUNT, AUTOMATED 385 10^3/uL (150-450); RED BLOOD COUNT 3.78 10^6/uL (4.00-5.40); WHITE BLOOD COUNT 6.6 10^3/uL (4.0-10.0)
[2021-08-19 16:10] LABS: ALBUMIN 3.5 GM/DL (3.2-5.2); ALT/SGPT 17 U/L (12-78); BILIRUBIN,TOTAL 0.5 MG/DL (0.2-1.0); BLOOD UREA NITROGEN 6 MG/DL (7-18); CARBON DIOXIDE LEVEL 26 MEQ/L (21-32); CHLORIDE LEVEL 106 MEQ/L (98-107); CREATININE FOR GFR 0.67 MG/DL (0.55-1.30); GLOMERULAR FILTRATION RATE > 60.0 (>60); GLUCOSE, FASTING 110 MG/DL (70-100); HCG, SERUM QUANTITATIVE 1384 MIU/ML; POTASSIUM SERUM 3.8 MEQ/L (3.5-5.1); SODIUM LEVEL 138 MEQ/L (136-145); TOTAL PROTEIN 7.3 GM/DL (6.4-8.2)
== END ==
LOC: M PLALAB 12:29
PROVIDERS: ATTEND Obstetrics & Gynecology
DX: Z32.00 Encounter for pregnancy test, result unknown (principal)

== ENCOUNTER → 2021-08-21 | Outpatient (CLI) | payer OTHER | LOC: M PLALAB 15:20 | PROVIDERS: ATTEND Obstetrics & Gynecology | DX: Z32.00 Encounter for pregnancy test, result unknown (principal) ==

== ENCOUNTER 2021-08-22 17:23 | Emergency (ER) | payer OTHER ==
[~2021-08-22] VITALS: Ht 170.2 cm; Wt 111.8 kg
--- OUTSIDE RECORDS SUMMARY | 2021-08-22 20:03 | CCD ---
Author Author [facility] Organization [facility] Address Unknown Phone Unavailable Care Team Providers Care Formal Waiter/Waitress Name Role Phone Matthew, Carrie PULP PRESS TENDER PULP PRESS TENDER Unavailable Unavailable Matthew, A Carrie PULP PRESS TENDER Unavailable Unavailable Matthew, A Carrie PULP PRESS TENDER Unavailable Unavailable Matthew, A Carrie PULP PRESS TENDER Unavailable Unavailable Matthew, A Carrie PULP PRESS TENDER Unavailable Unavailable Matthew, A Carrie PULP PRESS TENDER Unavailable Unavailable Matthew, A Carrie PULP PRESS TENDER Unavailable Unavailable Matthew, A Carrie PULP PRESS TENDER Unavailable Unavailable Matthew, A Carrie PULP PRESS TENDER Unavailable Unavailable Matthew, A Carrie PULP PRESS TENDER Unavailable Unavailable Matthew, A Carrie PULP PRESS TENDER Unavailable Unavailable Matthew, A Carrie PULP PRESS TENDER Unavailable Unavailable Matthew, A Carrie PULP PRESS TENDER Unavailable Unavailable Matthew, A Carrie PULP PRESS TENDER Unavailable Unavailable Matthew, A Carrie PULP PRESS TENDER Unavailable Unavailable Matthew, A Carrie PULP PRESS TENDER Unavailable Unavailable Matthew, A Carrie PULP PRESS TENDER Unavailable Unavailable Matthew, A Acrrie PULP PRESS TENDER Unavailable Unavailable Matthew, A Carrie PULP PRESS TENDER Unavailable Unavailable Matthew, A Carrie PULP PRESS TENDER Unavailable Unavailable Matthew, A Carrie PULP PRESS TENDER Unavailable Unavailable Matthew, A Carrie PULP PRESS TENDER Unavailable Unavailable Matthew, A Carrie PULP PRESS TENDER Unavailable Unavailable Matthew, A Carrie PULP PRESS TENDER Unavailable Unavailable Matthew, A Carrie PULP PRESS TENDER Unavailable Unavailable Matthew, A Carrie PULP PRESS TENDER Unavailable Unavailable Matthew, A Carrie PULP PRESS TENDER Unavailable Unavailable Matthew, A Carrie PULP PRESS TENDER Unavailable Unavailable Matthew, A Carrie PULP PRESS TENDER Unavailable Unavailable Matthew, A Carrie PULP PRESS TENDER Unavailable Unavailable Matthew, A Carrie PULP PRESS TENDER Unavailable Unavailable Matthew, A Carrie PULP PRESS TENDER Unavailable Unavailable Scordo, M Bella PA Unavailable [...] is protected by Article 27-F of the [facility] Public Health law. If you continue you may have access to information: Regarding HIV / AIDS; Provided by facilities licensed or operated by the [facility] Office of Mental Health; or Provided by the [facility] Office for People With Developmental Disabilities. If such information is present, then the following [facility] mandated warning applies: This information has been [...] law may result in a fine or alf sentence or both. A general authorization for the release of medical or other information is NOT sufficient authorization for further disc losure. Encounters Encounter Providers Location Date Indications Data Source(s ) Bella Saha PA-C: [address] [place] [id number], Ph. Attender: Bella [facility] Medical 02/05/2021 12:00:00 AM EDT [facility] ([facility]) Outpatient Attender: KAMILLE KUMAR 09/04/2020 08:20:01 A M EST [facility] Bella Saha PA-C: [address] [place] [address], Ph. Attender: Bella [facility] Medical 09/04/2020 12:00:00 AM EST [facility] ([facility]) Bella Saha PA-C: [address] [place] [address], Ph. Attender: Bella [facility] Medical 09/04/2020 12:00:00 AM EST [facility] ([facility]) Outpatient Attender: Carrie KUMAR 07/29/2020 07:4 4:03 AM EDT [facility] Outpatient Attender: KAMILLE KMUAR 07/29/2020 07:44:01 A M EDT [facility] Outpatient Attender: Carrie KUMAR 07/26/2020 02:0 1:01 PM EDT [facility] Outpatient Attender: KAMILLE KUMAR 07/26/2020 09:18:02 A M EDT [facility] Outpatient Attender: Carrie KUMAR 07/26/2020 09:1 7:01 AM EDT [facility] Outpatient Attender: KAMILLE KUMAR 07/26/2020 07:51:00 A M EDT [facility] Outpatient Attender: KAMILLE KUMAR 07/26/2020 07:50:00 A M EDT [facility] Outpatient Attender: KAMILLE KUMAR 07/26/2020 07:30:01 A M EDT [facility] Outpatient Attender: KAMILLE KUMAR 07/26/2020 07:29:01 A M EDT [facility] Outpatient Attender: KAMILLE KUMAR 07/17/2020 02:45:00 P M EDT [facility] Outpatient Attender: KAMILLE Castro PULP PRESS TENDER FP 06/28/2020 01:46:01 P M EDT [facility] Immunizations Vaccine Date Status Description Data Source(s) COVID-19 VACCINE Moderna 02/28/2021 12:00:00 AM EDT completed [facility] Vaccine Series Complete: YESThis Data wa s Submitted to [facility] Via [employer]. COVID-19 VACCINE Moderna 01/31/2021 12:00:00 AM EDT completed [facility] Vaccine Series Complete: NOThis Data was Submitted to [facility] [employer]. Tdap 07/26/2020 12:00:00 AM EDT completed 07/26/2020 0.5 mL [facility] ([facility]) Medications Medication Brand Name Start Date Product [...] 4 MG Disintegrating Oral Tablet [facility] (No [facility]) Ondansetron 4 MG Disintegrating Oral Tab let ondansetron 4 mg disintegrating tablet DISSOLVE ONE TABLET ON TONGUE EVERY 6 TO 8 HOURS NEEDED FOR NAUSEA/VOMITING ondansetron 4 mg disintegrating tablet D ISSOLVE ONE TABLET ON TONGUE EVERY 6 TO 8 HOURS NEEDED FOR NAUSEA/VOMITING completed ondansetron 4 MG Disintegrating Oral Tablet [facility] (No [facility]) Insurance Providers Payer name Policy type / Coverage type Policy ID Covered green party ID Covered green party's relationship to carr Policy Carr Plan Information Managed Care - [facility] P [id number] S [id number] [place] [id number] SP [id number] [facility] [id number] SP [id number] SP [id number] Medicaid S [id number] S [id number] [facility] [id number] SP [id number] [facility] O [id number] S [id number] MEDICAID [id number] SP [id number] [facility] P [id number] S [id number] P [facility] [id number] SP [id number] Sliding Fee Scale P UNAVAILABLE S UNAVAILABLE Problems, Conditions, and Diagnoses Code Display Name Description Problem Type Effective Dates Data Source(s) 723.1 Neck pain Neck pain 07/26/2020 09:16:27 AM ED T [facility] V70.0 Encounter for general adult medical exam ination with abnormal findings Encounter for general adult medical examination with abnormal findings 07/26/2020 09:16:27 AM EDT [facility] V05.9 Encounter for immunization Encounter for immunization 07/26/2020 09:16:27 AM EDT [facility] 788.41 Increased frequency of urination Increased frequency o f urination 07/26/2020 09:16:27 AM EDT [facility] 780.4 Dizziness and giddiness Dizziness and giddiness 07/26/2020 09:16:27 AM EDT [facility] V85.38 BMI 38.0-38.9 BMI 38.0-38.9 07/26/2020 09:16:27 AM EDT [facility] 278.00 Obesity Obesity 07/26/2020 09:16:27 AM ED T [facility] [id number] Procedure by method Procedure by Method Problem 1 12:00:00 AM EDT - 02/05/2021 12:00:00 AM EDT [facility] ([facility]) [id number] Influenza vaccine needed Influenza Vaccine Needed Pro blem 07/26/2020 12:00:00 AM EDT - 02/05/2021 12:00:00 AM EDT [facility] ([facility]) 813663830 Increased frequency of urination Increased Frequ ency of Urination Problem 07/26/2020 12:00:00 AM EDT - 02/05/2021 12:00:00 AM ED T [facility] ([facility]) [id number] Dizziness and giddiness Dizziness and Giddiness Proble m 07/26/2020 12:00:00 AM EDT - 02/05/2021 12:00:00 AM EDT [facility] ([facility]) 17019118 Neck pain Neck Pain Problem 07/26/2020 12:00:00 AM ED T [facility] ([facility]) 413063302 Body mass index 30+ - obesity Body Mass Index 30+ - Ob esity Problem 07/26/2020 12:00:00 AM EDT [facility] ([facility]) 338171906 Simple obesity Simple Obesity Problem 07/26/2020 12:00: 00 AM EDT [facility] ([facility]) 17168696 Diarrhea Diarrhea Problem 02/11/2018 12:0 0:00 AM EDT - 02/05/2021 12:00:00 AM EDT [facility] ([facility]) Surgeries/Procedures No Information Results ID Date Data Source [id number] 08/05/2021 12:00:00 AM EDT [facility] Name Value Range Interpretation Code Description Data Carey rce(s) Supporting Document(s) SARS coronavirus 2 Ag POSITIVE [facility] This lab was ordered by [facility] and reported by [facility]. ID Date Data Source [id number] 08/04/2021 10:13:00 AM EDT [facility] Name Value Range Interpretation Code Description Data Carey rce(s) Supporting Document(s) SARS coronavirus 2 RNA [Presence] in Res piratory specimen by ANGLE with probe detection POSITIVE [facility] This lab was ordered by [facility] a nd reported by [facility]. ID Date Data Source [id number] 07/29/2021 12:00:00 AM EDT [facility] Name Value Range Interpretation Code Description Data Carey rce(s) Supporting Document(s) SARS coronavirus 2 Ag NEGATIVE [facility] This lab was ordered by [facility] and reported by [facility]. ID Date Data Source [id number] 07/22/2021 12:00:00 AM EDT [facility] Name Value Range Interpretation Code Description Data Carey rce(s) Supporting Document(s) SARS coronavirus 2 Ag NEGATIVE [facility] This lab was ordered by [facility] and reported by [facility]. ID Date Data Source [id number] 07/15/2021 12:00:00 AM EDT [facility] Name Value Range Interpretation Code Description Data Carey rce(s) Supporting Document(s) SARS coronavirus 2 Ag NEGATIVE [facility] This lab was ordered by [facility] and reported by [facility]. ID Date Data Source [id number] 07/08/2021 12:00:00 AM EDT [facility] Name Value Range Interpretation Code Description Data Carey rce(s) Supporting Document(s) SARS coronavirus 2 Ag NEGATIVE [facility] This lab was ordered by [facility] and reported by [facility]. ID Date Data Source [id number] 06/26/2021 12:00:00 AM EDT [facility] Name Value Range Interpretation Code Description Data Carey rce(s) Supporting Document(s) SARS coronavirus 2 Ag NEGATIVE [facility] This lab was ordered by [facility] and reported by [facility]. ID Date Data Source [id number] 03/27/2021 12:00:00 AM EDT [facility] Name Value Range Interpretation Code Description Data Carey rce(s) Supporting Document(s) SARS coronavirus 2 Ag NEGATIVE [facility] This lab was ordered by [facility] and reported by [facility]. ID Date Data Source [id number] 03/18/2021 12:00:00 AM EDT [facility] Name Value Range Interpretation Code Description Data Carey rce(s) Supporting Document(s) SARS coronavirus 2 Ag NEGATIVE [facility] This lab was ordered by [facility] and reported by [facility]. ID Date Data Source [id number] 03/10/2021 11:27:00 AM EDT [facility] Name Value Range Interpretation Code Description Data Carey rce(s) Supporting Document(s) SARS-CoV-2 (COVID-19) RNA [Presence] in Respiratory specimen by ANGLE with probe detection Not Detected [facility] This lab was ordered by [facility] and reported by [employer]. ID Date Data Source [id number] 03/03/2021 02:22:00 PM EDT [facility] Name Value Range Interpretation Code Description Data Carey rce(s) Supporting Document(s) SARS-CoV-2 (COVID-19) RNA [Presence] in Respiratory specimen by ANGLE with probe detection Not Detected [facility] This lab was ordered by [facility] and reported by [employer] ID Date Data Source [id number] 02/27/2021 12:00:00 AM EDT [facility] Name Value Range Interpretation Code Description Data Carey rce(s) Supporting Document(s) SARS coronavirus 2 Ag NEGATIVE [facility] This lab was ordered by [facility] and reported by [facility]. ID Date Data Source [id number] 02/24/2021 01:38:00 PM EDT [facility] Name Value Range Interpretation Code Description Data Carey rce(s) Supporting Document(s) SARS-CoV-2 (COVID-19) RNA [Presence] in Respiratory specimen by ANGLE with probe detection Not Detected [facility] This lab was ordered by [facility] and reported by [employer] ID Date Data Source [id number] 02/17/2021 05:49:00 AM EDT [facility] Name Value Range Interpretation Code Description Data Carey rce(s) Supporting Document(s) SARS-CoV-2 (COVID-19) RNA [Presence] in Respiratory specimen by ANGLE with probe detection Not Detected [facility] This lab was ordered by [facility] and reported by [employer] ID Date Data Source [id number] 02/10/2021 12:49:00 PM EDT [facility] Name Value Range Interpretation Code Description Data Carey rce(s) Supporting Document(s) SARS-CoV-2 (COVID-19) RNA [Presence] in Respiratory specimen by ANGLE with probe detection Not Detected [facility] This lab was ordered by [facility] and reported by [employer] ID Date Data Source [id number] 02/03/2021 12:56:00 PM EDT [facility] Name Value Range Interpretation Code Description Data Carey rce(s) Supporting Document(s) SARS-CoV-2 (COVID-19) RNA [Presence] in Respiratory specimen by ANGLE with probe detection Not Detected [facility] This lab was ordered by [facility] and reported by [employer] ID Date Data Source [id number] 01/27/2021 10:21:00 AM EDT [facility] Name Value Range Interpretation Code Description Data Carey rce(s) Supporting Document(s) SARS-CoV-2 (COVID-19) RNA [Presence] in Respiratory specimen by ANGLE with probe detection Not Detected [facility] This lab was ordered by [facility] and reported by [employer]. ID Date Data Source [id number] 01/20/2021 09:21:00 AM EDT [facility] Name Value Range Interpretation Code Description Data Carey rce(s) Supporting Document(s) SARS-CoV-2 (COVID-19) RNA [Presence] in Respiratory specimen by ANGLE with probe detection Not Detected [facility] This lab was ordered by [facility] and reported by [employer] ID Date Data Source [id number] 01/13/2021 12:30:00 PM EDT [facility] Name Value Range Interpretation Code Description Data Carey rce(s) Supporting Document(s) SARS-CoV-2 (COVID-19) RNA [Presence] in Respiratory specimen by ANGLE with probe detection Not Detected [facility] This lab was ordered by [facility] and reported by [employer] ID Date Data Source [id number] 01/06/2021 05:20:00 AM EDT [facility] Name Value Range Interpretation Code Description Data Carey rce(s) Supporting Document(s) SARS coronavirus 2 RNA Not Detected [facility] This lab was ordered by [facility] and reported by [facility]. ID Date Data Source [id number] 12/30/2020 01:30:00 PM EDT [facility] Name Value Range Interpretation Code Description Data Carey rce(s) Supporting Document(s) SARS coronavirus 2 RNA Not Detected [facility] This lab was ordered by [facility] and reported by [facility]. ID Date Data Source [id number] 12/23/2020 12:23:00 PM EST [facility] Name Value Range Interpretation Code Description Data Carey rce(s) Supporting Document(s) SARS coronavirus 2 RNA Not Detected [facility] This lab was ordered by [facility] and reported by [facility]. ID Date Data Source [id number] 12/09/2020 11:00:00 AM EST [facility] Name Value Range Interpretation Code Description Data Carey rce(s) Supporting Document(s) SARS coronavirus 2 RNA Not Detected [facility] This lab was ordered by [facility] and reported by [facility]. ID Date Data Source [id number] 12/05/2020 12:00:00 AM EST [facility] Name Value Range Interpretation Code Description Data Carey rce(s) Supporting Document(s) SARS coronavirus 2 Ag NEGATIVE [facility] This lab was ordered by [facility] and reported by [facility]. ID Date Data Source [id number] 12/02/2020 01:00:00 PM EST [facility] Name Value Range Interpretation Code Description Data Carey rce(s) Supporting Document(s) SARS coronavirus 2 RNA Not Detected [facility] This lab was ordered by [facility] and reported by [facility]. ID Date Data Source [id number] 11/25/2020 02:00:00 PM EST [facility] Name Value Range Interpretation Code Description Data Carey rce(s) Supporting Document(s) SARS coronavirus 2 RNA Not Detected [facility] This lab was ordered by [facility] and reported by [facility]. ID Date Data Source [id number] 11/21/2020 12:00:00 AM EST [facility] Name Value Range Interpretation Code Description Data Carey rce(s) Supporting Document(s) SARS coronavirus 2 Ag [facility] This lab was ordered by [facility] and reported by [facility]. ID Date Data Source [id number] 11/18/2020 01:00:00 PM EST [facility] Name Value Range Interpretation Code Description Data Carey rce(s) Supporting Document(s) SARS coronavirus 2 RNA Not Detected [facility] This lab was ordered by [facility] and reported by [facility]. ID Date Data Source [id number] 11/14/2020 12:00:00 AM EST [facility] Name Value Range Interpretation Code Description Data Carey rce(s) Supporting Document(s) SARS coronavirus 2 Ag NEGATIVE [facility] This lab was ordered by [facility] and reported by [facility]. ID Date Data Source [id number] 11/11/2020 12:00:00 PM EST [facility] Name Value Range Interpretation Code Description Data Carey rce(s) Supporting Document(s) SARS coronavirus 2 RNA Not Detected [facility] This lab was ordered by [facility] and reported by [facility]. ID Date Data Source [id number] 11/07/2020 12:00:00 AM EST [facility] Name Value Range Interpretation Code Description Data Carey rce(s) Supporting Document(s) SARS coronavirus 2 Ag Negative [facility] This lab was ordered by [facility] and reported by [facility]. ID Date Data Source [id number] 11/04/2020 02:52:00 PM EST [facility] Name Value Range Interpretation Code Description Data Carey rce(s) Supporting Document(s) SARS coronavirus 2 RNA Not Detected [facility] This lab was ordered by [facility] and reported by [facility]. ID Date Data Source [id number] 10/31/2020 12:00:00 AM EST [facility] Name Value Range Interpretation Code Description Data Carey rce(s) Supporting Document(s) SARS-CoV2 Rapid Antigen Negative [facility] This lab was ordered by [facility] and reported by [facility]. ID Date Data Source [id number] 10/28/2020 02:30:00 PM EST [facility] Name Value Range Interpretation Code Description Data Carey rce(s) Supporting Document(s) SARS coronavirus 2 RNA Not Detected [facility] This lab was ordered by [facility] and reported by [facility]. ID Date Data Source [id number] 10/21/2020 02:00:00 PM EST [facility] Name Value Range Interpretation Code Description Data Carey rce(s) Supporting Document(s) SARS coronavirus 2 RNA Not Detected [facility] This lab was ordered by [facility] and reported by [facility]. ID Date Data Source [id number] 10/14/2020 12:45:00 PM EST [facility] Name Value Range Interpretation Code Description Data Carey rce(s) Supporting Document(s) SARS coronavirus 2 RNA [facility] This lab was ordered by [facility] and reported by [facility]. ID Date Data Source [id number] 10/04/2020 12:00:00 AM EST [facility] Name Value Range Interpretation Code Description Data Carey rce(s) Supporting Document(s) SARS-CoV2 Rapid Antigen [facility] This lab was ordered by [facility] and reported by [facility]. ID Date Data Source [id number] 09/30/2020 11:00:00 AM EST [facility] Name Value Range Interpretation Code Description Data Carey rce(s) Supporting Document(s) SARS coronavirus 2 RNA [facility] This lab was ordered by [facility] and reported by [facility]. ID Date Data Source [id number] 09/23/2020 05:17:00 AM EST [facility] Name Value Range Interpretation Code Description Data Carey rce(s) Supporting Document(s) SARS coronavirus 2 RNA [facility] This lab was ordered by [facility] and reported by [facility]. ID Date Data Source [id number] 09/16/2020 10:23:00 AM EST [facility] Name Value Range Interpretation Code Description Data Carey rce(s) Supporting Document(s) SARS coronavirus 2 RNA [facility] This lab was ordered by [facility] and reported by [facility]. ID Date Data Source [id number] 09/09/2020 11:00:00 AM EST [facility] Name Value Range Interpretation Code Description Data Carey rce(s) Supporting Document(s) SARS coronavirus 2 RNA [facility] This lab was ordered by [facility] and reported by [facility]. ID Date Data Source [id number] 09/04/2020 09:25:00 AM EST [facility]) Name Value Range Interpretation Code Description Data Carey rce(s) Supporting Document(s) ferritin 17 NG/mL 8-252 Ferritin [facility] ([facility]) ID Date Data Source [id number] 09/04/2020 09:25:00 AM EST [facility] ([facility]) Name Value Range Interpretation Code Description Data Carey rce(s) Supporting Document(s) iron (fe) 96 ug/dL 50-170 Iron (Fe) [facility]) percent saturation 25.1 % 13.2-45.0 Percent Saturatio n [facility] ([facility]) total iron binding capacity 382 ug/dL 250-450 Total Ir on Binding Capacity [facility] ([facility]) ID Date Data Source [id number] 09/04/2020 09:25:00 AM EST [facility] ([facility]) Name Value Range Interpretation Code Description Data Carey rce(s) Supporting Document(s) hemoglobin 11.1 g/dL 12.0-15.5 Below low normal Hemoglobin [facility] ( [facility]) red blood count 4.12 10 4.00-5.40 Red Blood Count ATHE NA ([facility]) white blood count 3.8 10 4.0-10.0 Below low normal White Blood Count [facility] ([facility]) mean corpuscular HGB conc 30.8 g/dL 32.0-36.5 Below low troy l Mean Corpuscular HGB Conc [facility] ([facility]) mean corpuscular hemoglobin 26.9 pg 27.0-33.0 Below low nor mal Mean Corpuscular Hemoglobin [facility] ([facility]) mean corpuscular volume 87.4 fL 80.0-96.0 Mean Corpusc ular Volume [facility] ([facility]) hematocrit 36.0 % 36.0-47.0 Hematocrit [facility] ([facility]) platelet count, automated 418 10 150-450 Platelet C ount, Automated [facility] ([facility]) neutrophils % 40.5 % 36.0-66.0 Neutrophils % [facility] ( [facility]) red cell distribution width 12.3 % 11.5-14.5 Red Cell Distribution Width [facility] ([facility]) lymph % 43.5 % 24.0-44.0 Lymph % [facility] ([facility]) immature granulocyte % 0.3 % 0-3.0 Immature Gran ulocyte % [facility] ([facility]) mono % 8.0 % 0.0-5.0 Above high normal [place] % [facility] ([facility]) eos % 6.4 % 0.0-3.0 Above high normal Eos % [facility] ([facility]) baso % 1.3 % 0.0-1.0 Above high normal Baso % [facility] ([facility]) lymph # 1.6 10 1.5-5.0 Lymph # [facility] ([facility]) mono # 0.3 10 0.0-0.8 [place] # [facility] ([facility]) nucleated red blood cell % 0.0 % 0-0 Nucleated Red Blood Cell % [facility] ([facility]) neutrophils # 1.5 10 1.5-8.5 Neutrophils # [facility] ( [facility]) baso # 0.1 10 0.0-0.2 Baso # [facility] ([facility]) eos # 0.2 10 0.0-0.5 Eos # [facility] ([facility]) ID Date Data Source [id number] 09/02/2020 11:39:00 AM EST [facility] Name Value Range Interpretation Code Description Data Carey rce(s) Supporting Document(s) SARS coronavirus 2 RNA [facility] This lab was ordered by [facility] and reported by [facility]. ID Date Data Source [id number] 08/29/2020 09:00:00 AM EST [facility] Name Value Range Interpretation Code Description Data Carey rce(s) Supporting Document(s) SARS coronavirus 2 RNA [facility] This lab was ordered by [facility] and reported by [facility]. ID Date Data Source [id number] 08/19/2020 09:30:00 AM EST [facility] Name Value Range Interpretation Code Description Data Carey rce(s) Supporting Document(s) SARS coronavirus 2 RNA [facility] This lab was ordered by [facility] and reported by [facility]. ID Date Data Source [id number] 08/12/2020 10:30:00 AM EDT [facility] Name Value Range Interpretation Code Description Data Carey rce(s) Supporting Document(s) SARS coronavirus 2 RNA [facility] This lab was ordered by [facility] and reported by [facility]. ID Date Data Source [id number] 08/05/2020 02:38:00 PM EDT [facility] Name Value Range Interpretation Code Description Data Carey rce(s) Supporting Document(s) SARS coronavirus 2 RNA [facility] This lab was ordered by [facility] and reported by [facility]. ID Date Data Source [id number] 07/29/2020 11:30:00 AM EDT [facility] Name Value Range Interpretation Code Description Data Carey rce(s) Supporting Document(s) SARS coronavirus 2 RNA [facility] This lab was ordered by [facility] and reported by [facility]. ID Date Data Source [id number] 07/26/2020 04:00:37 PM EDT [facility] Name Value Range Interpretation Code Description Data Carey rce(s) Supporting Document(s) APPEARANCE U clear [facility] BILIRUBIN UR negative [facility] BLOOD UR DIP 3+ [facility] GLUCOSE, URN negative [facility] KETONES URN negative [facility] NITRITE URN negative [facility] PH URINE 6.0 [facility] PROTEIN, URN 0.15 [facility] SPEC GR URIN 1.030 [facility] UA COLOR yellow [facility] UROBILINOGEN 3.5 [facility] WBC DIPSTK U negative [facility] ID Date Data Source [id number] 07/26/2020 12:36:59 PM EDT [facility] Labs In-House Urine TestsDate/Time Colle cted: July 26, 2020 9:23AMTest Result Reference Range Normal ValueComments: Urine collected in officeEmelia Boss MA, July 26, 2020 12:38 PMBlood TestsDate/Time Collected: July 26, 2020 9:23 AMTest Result Reference Range Normal ValueComments: Blood drawn in office from left AC, tolerated wellEmelia Boss MA, July 26, 2020 12:38 PMAssessment & Plan Orders:[id number] - Venipuncture [CPT-70021] Name Value Range Interpretation Code Description Data Carey rce(s) Supporting Document(s) ID Date Data Source [id number] 07/26/2020 08:01:31 AM EDT [facility] Measurements & CalculationsHeight: 66.50 inches [...] or Preferred Language: EnglishFamily and Home Address: [address] [place] [address] What is your housing situation today? I [...] really needed? Denies Insecurity: food, utilities, clothing, child adolescent care, phone, legal servicesWithin the past year was [...] 2 nights in a row in a alf, halfway, halfway center or juvenile correctional facility? No Has [...] you a refugee? No (Country of origin: [facility]) Do you feel physically and [...] PCP in 3 years. Does follow with [facility] for routine health maintenance and ovarian cysts. [...] during this visit, including review of any zytb-lgy-rgvjyym medications, herbal therapies, and/or supplements. Patient has no known medications.Allergy ReviewAllergy List was reviewed and/or updated during this visit.Adult Preventive CareProvider Calculated and Reviewed all Clinical Protocols for patient today. Labs/Meds/Other Counseling-Nutrition and Physical Activity:BMI Interpretation: Obese (07/26/2020) Counseling: Done (07/26/2020) Physical Activity: Done (07/26/2020)Cancer Screening Pap Smear/HPV TestingReviewed: Previous Comments: last year in [place] (02/11/2018)Today's Comments: [facility] (04/2020)Review of Systems General: Complains of [...] & Plan Problems:Added: Encounter for immunization (ICD-V05.9) ([id number]-L04)Neck pain (ICD-723.1) (KYJ38-T99.2)Encounter for general adult medical examination with abnormal findings (ICD-V70.0) (GSX60-J16.01) Assessment: Health maintenance updated. Tdap given. Discussed healthy lifestyle choices.Increased frequency of urination (ICD-788.41) (ZDD46-F33.0) Assessment: possible inflammatory vs. irritative. labs ordered. UA wnl. will consider urology referral.Dizziness and giddiness (ICD-780.4) (BEK33-G39) Assessment: likely vertigo. labs ordered. will proceed based on testing. discussed s/s that would warrant ED eval. consider PTBMI 38.0-38.9 (ICD-V85.38) (ZHM39-V54.38) Assessment: discussed healthy lifestyle choicesObesity (ICD- 278.00) (IRR27-V72.09) Assessment: as aboveAssessment not SavedNeck pain (OUC29-L83.2): likely positional and strain related. she declines PT. no radicular symptoms. discussed supportive care and exercises at home. Follow up if not improving. Allergies:* PEROCET (Critical)Orders:COMP METABOLIC PANEL [CPT-45031] CBC W/DIFF [CPT-32560] HgBA1c [CPT-38561] LIPID PANEL [CPT-61019] TSH [CPT-94765] URINALYSIS [CPT-90563] Tdap (5) [CPT-33600] 80558 - Immo Admin (over 19 yrs), 1st Vaccine [CPT-04435] IM or SQ Injection [CPT-90036] Preventive, New, (18-39) [CPT-15740] Adult - Ofc Vst, NEW, Level III [CPT-93287] Follow-Up Return to clinic: in 30 days for follow upClinical Visit Summary DeclinedVaccines Administered/Entered:Vaccination Group: TdapSeries: 1Vaccination: Boostrix - AdultMfr / Lot# / Exp.Date: GlaxoSmithKline / [id number] 07/25/2022mt. Given / Route / Site: 0.5 mL / IM / Left DeltoidNDC / CVX: [id number] / 115Administered Date: 07/26/2020 9:11VFC Eligibility: Non-VFC ClinicVIS Date: 01/17/2020Comments: Administered by: Maggy Moura LPN Labs In-House Urine TestsDate/Time Collected: July 26, 2020 8:30 AMDate/Time Received: July 26, 2020 8:30 AMTest Result Reference Range Normal ValueRoutine Urinalysis Color: yellow Yellow Appearance: clear Clear Leukocytes: negative Negative Nitrite: negative Negative Urobilinogen: 3.5 Negative Protein: 0.15 Negative pH: 6.0 5.0-6.5 Blood: 3+ Negative Specific [place]: 1.030 1.020>=1.030 Ketone: negative Negative Bilirubin: negative Negative Glucose: negative NegativeLoriAnn Jenn LOUIS, July 26, 2020 4:03 PMPRAPARE Sociodemographic Characteristics Race: Black or Ethnicity: Not or Preferred Language: EnglishAssessment & Plan Name Value Range Interpretation Code Description Data Carey rce(s) Supporting Document(s) ID Date Data Source PAP REQUEST FOR SERVICE 07/25/2020 12:40:56 PM EDT eCW1 ([facility]) Name Value Range Interpretation Code Description Data Carey rce(s) Supporting Document(s) PAP REQUEST FOR SERVICE eCW1 ( [facility]) ID Date Data Source [id number] 07/22/2020 06:50:00 AM EDT [facility] Name Value Range Interpretation Code Description Data Carey rce(s) Supporting Document(s) SARS coronavirus 2 RNA [facility] This lab was ordered by [facility] and reported by [facility]. ID Date Data Source [id number] 07/15/2020 12:00:00 PM EDT [facility] Name Value Range Interpretation Code Description Data Carey rce(s) Supporting Document(s) SARS coronavirus 2 RNA [facility] This lab was ordered by [facility] and reported by [facility]. ID Date Data Source [id number] 07/08/2020 11:15:00 AM EDT [facility] Name Value Range Interpretation Code Description Data Carey rce(s) Supporting Document(s) SARS coronavirus 2 RNA [facility] This lab was ordered by [facility] and reported by [facility]. ID Date Data Source [id number] 07/01/2020 10:00:00 AM EDT [facility] Name Value Range Interpretation Code Description Data Carey rce(s) Supporting Document(s) SARS coronavirus 2 RNA [facility] This lab was ordered by [facility] and reported by [facility]. ID Date Data Source [id number] 06/26/2020 07:00:00 AM EDT [facility] Name Value Range Interpretation Code Description Data Carey rce(s) Supporting Document(s) SARS coronavirus 2 RNA [facility] This lab was ordered by [facility] and reported by [facility]. Procedure Social History No Information Vital Signs ID Date Data Source UNK Name Value Range Interpretation Code Description Data Source(s) Diastolic blood pressure 79 mm[Hg] 79 mm[Hg] LUIS ([facility]) Body height 67 [in_i] 67 [in_i] LUIS ([facility]) Body mass index (BMI) [Ratio] 37.6 kg/m2 37.6 k g/m2 LUIS ([facility]) Systolic blood pressure 123 mm[Hg] 123 mm[Hg] A THENA ([facility]) Body weight 3840 [oz_av] 3840 [oz_av] LIUS ([facility]) Diastolic blood pressure 76 mm[Hg] 76 mm[Hg] LUIS ([facility]) Body height 67 [in_i] 67 [in_i] LUIS ([facility]) Body mass index (BMI) [Ratio] 36.5 kg/m2 36.5 k g/m2 LUIS ([facility]) Systolic blood pressure 112 mm[Hg] 112 mm[Hg] A THENA ([facility]) Body weight 3730 [oz_av] 3730 [oz_av] LUIS ([facility]) Diastolic blood pressure 76 mm[Hg] 76 mm[Hg] LUIS ([facility]) Body height 67 [in_i] 67 [in_i] LUIS ([facility]) Body mass index (BMI) [Ratio] 36.5 kg/m2 36.5 k g/m2 LUIS ([facility]) Systolic blood pressure 112 mm[Hg] 112 mm[Hg] A THENA ([facility]) Body weight 3730 [oz_av] 3730 [oz_av] LUIS ([facility]) Diastolic blood pressure 87 mm[Hg] 87 mm[Hg] LUIS ([facility]) Body height 66.5 [in_i] 66.5 [in_i] LUIS ([facility]) Body mass index (BMI) [Ratio] 38.61 kg/m2 38.61 kg/m2 LUIS ([facility]) Systolic blood pressure 138 mm[Hg] 138 mm[Hg] A THENA ([facility]) Body weight 3872 [oz_av] 3872 [oz_av] LUIS ([facility]) Patient Treatment Plan of Care Planned Activity Planned Date Details Description Data Source (s) Ondansetron 4 MG Disintegrating Oral Tablet LUIS ([facility]) Ondansetron 4 MG Disintegrating Oral Tablet LUIS ([facility])
[2021-08-22] MEDS ORDERED: METHOTREXATE 50MG/2ML VIAL (J9260 PER 50MG) IM STA (20:16)
[2021-08-22 22:40] VITALS: BP 140/79
== END 2021-08-22 22:42 | disposition home or self-care (01) ==
LOC: M ED 17:23
DX: O00.90 Unspecified ectopic pregnancy without intrauterine pregnancy (principal); Z32.01 Encounter for pregnancy test, result positive
CPT/HCPCS: 96372; 99283; J9260

== ENCOUNTER → 2021-08-26 | Outpatient (CLI) | payer OTHER | LOC: M PLALAB 15:07 | PROVIDERS: ATTEND Obstetrics & Gynecology | DX: O00.101 Right tubal pregnancy without intrauterine pregnancy (principal) ==

== ENCOUNTER → 2021-08-29 | Outpatient (CLI) | payer OTHER | LOC: M PLALAB 15:04 | PROVIDERS: ATTEND Obstetrics & Gynecology | DX: O00.101 Right tubal pregnancy without intrauterine pregnancy (principal); Z3A.00 Weeks of gestation of pregnancy not specified ==

== ENCOUNTER → 2021-09-05 | Outpatient (CLI) | payer OTHER | LOC: M PLALAB 09:13 | PROVIDERS: ATTEND Obstetrics & Gynecology | DX: O00.101 Right tubal pregnancy without intrauterine pregnancy (principal); Z3A.00 Weeks of gestation of pregnancy not specified ==

== ENCOUNTER → 2021-09-12 | Outpatient (CLI) | payer OTHER | LOC: M LAB 10:46 | PROVIDERS: ATTEND Obstetrics & Gynecology | DX: O00.101 Right tubal pregnancy without intrauterine pregnancy (principal); Z3A.00 Weeks of gestation of pregnancy not specified ==

== ENCOUNTER → 2021-09-19 | Outpatient (CLI) | payer OTHER | LOC: M LAB 08:13 | PROVIDERS: ATTEND Obstetrics & Gynecology | DX: O00.101 Right tubal pregnancy without intrauterine pregnancy (principal) ==

== ENCOUNTER → 2021-09-26 | Outpatient (CLI) | payer OTHER ==
[~2021-09-26] MED LIST changes: +DICL75TA PO; +LIDO5DIS41 TOP; +METH-1164 PO
== END ==
LOC: M LAB 15:17
PROVIDERS: ATTEND Obstetrics & Gynecology
DX: O00.101 Right tubal pregnancy without intrauterine pregnancy (principal)

== ENCOUNTER 2021-10-28 10:39 | Emergency (ER) | payer OTHER ==
[~2021-10-28] VITALS: Ht 170.2 cm; Wt 110.0 kg
[~2021-10-28 10:39] MED LIST changes: -DICL75TA PO; -LIDO5DIS41 TOP; -METH-1164 PO
[2021-10-28 13:16] LABS: BASO % 0.8 % (0.0-1.0); EOS # 0.2 10^3/uL (0.0-0.5); EOS % 4.4 % (0.0-3.0); HEMATOCRIT 36.1 % (36.0-47.0); LYMPH % 38.6 % (24.0-44.0); MEAN CORPUSCULAR HEMOGLOBIN 25.2 pg (27.0-33.0); MEAN CORPUSCULAR HGB CONC 30.5 g/dl (32.0-36.5); MEAN CORPUSCULAR VOLUME 82.8 fl (80.0-96.0); MONO # 0.3 10^3/uL (0.0-0.8); MONO % 6.4 % (2.0-8.0); NEUTROPHILS # 2.6 10^3/uL (1.5-8.5); NEUTROPHILS % 49.6 % (36.0-66.0); PLATELET COUNT, AUTOMATED 465 10^3/uL (150-450); RED BLOOD COUNT 4.36 10^6/uL (4.00-5.40); WHITE BLOOD COUNT 5.3 10^3/uL (4.0-10.0)
[2021-10-28 13:39] LABS: HCG, SERUM QUALITATIVE NEGATIVE (NEGATIVE)
[2021-10-28 13:42] LABS: ALBUMIN 3.7 GM/DL (3.2-5.2); ALT/SGPT 19 U/L (12-78); BILIRUBIN,DIRECT < 0.1 MG/DL (0.0-0.2); BILIRUBIN,TOTAL 0.3 MG/DL (0.2-1.0); BLOOD UREA NITROGEN 9 MG/DL (7-18); CARBON DIOXIDE LEVEL 28 MEQ/L (21-32); CHLORIDE LEVEL 106 MEQ/L (98-107); CREATININE FOR GFR 0.76 MG/DL (0.55-1.30); GLOMERULAR FILTRATION RATE > 60.0 (>60); GLUCOSE, FASTING 102 MG/DL (70-100); LIPASE 74 U/L (73-393); POTASSIUM SERUM 4.1 MEQ/L (3.5-5.1); SODIUM LEVEL 139 MEQ/L (136-145); TOTAL PROTEIN 7.9 GM/DL (6.4-8.2)
[2021-10-28] MEDS ORDERED: ONDANSETRON 4 MG ORAL DISINTEGRATING TAB PO ONE (13:55)
[2021-10-28] MEDS ORDERED: ONDA4TAB6 PO (14:33)
[2021-10-28 15:37] VITALS: BP 136/82
== END 2021-10-28 15:38 | disposition home or self-care (01) ==
LOC: M ED 10:39
DX: K80.20 Calculus of gallbladder without cholecystitis without obstruction (principal); Z88.5 Allergy status to narcotic agent; Z88.6 Allergy status to analgesic agent
CPT/HCPCS: 36415; 76705; 80048; 80076; 81001; 83690; 84703; 85025; 87086; 99283; Q0162

== ENCOUNTER 2021-11-28 13:11 | Emergency (ER) | payer OTHER ==
[~2021-11-28] VITALS: Ht 170.2 cm; Wt 110.6 kg
[2021-11-28] MEDS ORDERED: methocarbamoL 750 MG TAB PO ONE (16:00)
[2021-11-28] MEDS ORDERED: KETOROLAC 60MG 2ML VIAL IM ONE (16:00)
[2021-11-28] MEDS ORDERED: LIDOCAINE 5% (LIDODERM) PATCH TD ONE (16:00)
[2021-11-28] MEDS ORDERED: METH-1164 PO (17:05)
[2021-11-28] MEDS ORDERED: LIDO5DIS41 TOP (17:05)
[2021-11-28] MEDS ORDERED: DICL75TA PO (17:05)
[2021-11-28 17:29] VITALS: BP 128/65
[2021-11-28] MEDS ORDERED: **NOTE PATIENT COMMENT** MISC XX SCH (21:00)
== END 2021-11-28 17:30 | disposition home or self-care (01) ==
LOC: M ED 13:11
DX: M51.26 Other intervertebral disc displacement, lumbar region (principal); M51.27 Other intervertebral disc displacement, lumbosacral region; M54.16 Radiculopathy, lumbar region; Z88.6 Allergy status to analgesic agent; Z88.5 Allergy status to narcotic agent; Z87.442 Personal history of urinary calculi
CPT/HCPCS: 72128; 72131; 96372; 99283; J1885

== ENCOUNTER → 2022-01-14 | Outpatient (CLI) | payer OTHER ==
[~2022-01-14] MED LIST changes: +DICL75TA PO; +LIDO5DIS41 TOP; +METH-1164 PO; +MULT-40 PO
== END ==
LOC: M LABSMTC 09:29
PROVIDERS: ATTEND Anesthesiology
DX: Z11.52 Encounter for screening for COVID-19 (principal); Z20.822 Contact with and (suspected) exposure to COVID-19

== ENCOUNTER 2022-01-18 09:00 | Emergency (ER) | payer OTHER ==
[~2022-01-18] VITALS: Ht 170.2 cm; Wt 109.1 kg
[2022-01-18 09:36] LABS: BASO # 0.1 10^3/uL (0.0-0.2); BASO % 0.9 % (0.0-1.0); EOS # 0.2 10^3/uL (0.0-0.5); EOS % 3.6 % (0.0-3.0); HEMATOCRIT 36.8 % (36.0-47.0); HEMOGLOBIN 11.5 g/dl (12.0-15.5); LYMPH # 2.4 10^3/uL (1.5-5.0); LYMPH % 45.7 % (24.0-44.0); MEAN CORPUSCULAR HEMOGLOBIN 26.4 pg (27.0-33.0); MEAN CORPUSCULAR HGB CONC 31.3 g/dl (32.0-36.5); MEAN CORPUSCULAR VOLUME 84.4 fl (80.0-96.0); MONO # 0.4 10^3/uL (0.0-0.8); MONO % 7.8 % (2.0-8.0); NEUTROPHILS # 2.2 10^3/uL (1.5-8.5); PLATELET COUNT, AUTOMATED 425 10^3/uL (150-450); RED BLOOD COUNT 4.36 10^6/uL (4.00-5.40); WHITE BLOOD COUNT 5.3 10^3/uL (4.0-10.0)
[2022-01-18 09:59] LABS: CK-MB VALUE MASS 1.3 NG/ML (<3.6); CPK CREATINE PHOSPHOKINASE 91 U/L (26-192); MB/CK RELATIVE INDEX 1.43 (< OR =4)
[2022-01-18 10:25] LABS: ALBUMIN 3.9 GM/DL (3.2-5.2); ALT/SGPT 20 U/L (12-78); BILIRUBIN,DIRECT 0.1 MG/DL (0.0-0.2); BILIRUBIN,TOTAL 0.5 MG/DL (0.2-1.0); BLOOD UREA NITROGEN 10 MG/DL (7-18); CALCIUM LEVEL 8.7 MG/DL (8.5-10.1); CARBON DIOXIDE LEVEL 24 MEQ/L (21-32); CHLORIDE LEVEL 107 MEQ/L (98-107); CREATININE FOR GFR 0.73 MG/DL (0.55-1.30); GLOMERULAR FILTRATION RATE > 60.0 (>60); GLUCOSE, FASTING 96 MG/DL (70-100); LIPASE 75 U/L (73-393); POTASSIUM SERUM 4.5 MEQ/L (3.5-5.1); SODIUM LEVEL 137 MEQ/L (136-145); TOTAL PROTEIN 7.8 GM/DL (6.4-8.2)
[2022-01-18 10:45] VITALS: BP 120/69
[2022-01-18 10:50] LABS: CK-MB VALUE MASS 1.1 NG/ML (<3.6); CPK CREATINE PHOSPHOKINASE 86 U/L (26-192); MB/CK RELATIVE INDEX 1.28 (< OR =4)
[2022-01-18] MEDS ORDERED: ISOVUE-370 76% 100ML VIAL As Ordered ONE (10:50)
== END 2022-01-18 11:44 | disposition home or self-care (01) ==
LOC: M ED 09:00
DX: R07.9 Chest pain, unspecified (principal); R94.31 Abnormal electrocardiogram [ECG] [EKG]; F41.8 Other specified anxiety disorders; Z88.5 Allergy status to narcotic agent
CPT/HCPCS: 36415; 71045; 71275; 80048; 80076; 82550; 82553; 83690; 84443; 85025; 85379; 93005; 93041; 94760; 99285; Q9967

== ENCOUNTER 2022-01-19 12:53 | Day surgery (SDC) | payer OTHER ==
[~2022-01-19] VITALS: Ht 170.2 cm; Wt 105.1 kg
[~2022-01-19 12:53] MED LIST changes: +LIDOCAINE 1% MDV 20ML VIAL SQ PRN; +LR 1,000 ML IV ONE
[2022-01-19] MEDS ORDERED: LIDOCAINE W/EPINEPHRINE 1% 20ML VIAL As Ordered ONE (14:49)
[2022-01-19] MEDS ORDERED: fentaNYL 250 MCG/5 ML INJECTION As Ordered ONE (15:01)
[2022-01-19] MEDS ORDERED: LIDOCAINE 2% 100MG/5ML SDV (FOR ANES.) As Ordered ONE (15:01)
[2022-01-19] MEDS ORDERED: ONDANSETRON 4MG/2ML VIAL As Ordered ONE (15:01)
[2022-01-19] MEDS ORDERED: dexameTHASONE 4 MG/ML 1ML VIAL (J1100 PER 1MG) As Ordered ONE (15:01)
[2022-01-19] MEDS ORDERED: propofoL 200 MG/20 ML VIAL As Ordered ONE (15:01)
[2022-01-19] MEDS ORDERED: ROCURONIUM BROMIDE 50 MG/5 ML VIAL As Ordered ONE (15:01)
[2022-01-19] MEDS ORDERED: MIDAZOLAM INJ 2MG/2ML VIAL (J2250 PER 1MG) As Ordered ONE (15:01)
[2022-01-19] MEDS ORDERED: KETOROLAC 60MG 2ML VIAL As Ordered ONE (15:01)
[2022-01-19] MEDS ORDERED: SUGAMMADEX SODIUM 500 MG/5 ML VIAL (BRIDION) As Ordered ONE (15:01)
[2022-01-19] MEDS ORDERED: METOCLOPRAMIDE INJ 10MG/2ML VIAL (J2765 PER 1) As Ordered ONE (15:01)
[2022-01-19] MEDS ORDERED: ACETAMINOPHEN 1000MG 100ML IV BTL (OFIRMEV) (J0131 PER 10MG) As Ordered ONE (15:04)
[2022-01-19] MEDS ORDERED: LABETALOL 100MG/20ML VIAL As Ordered ONE (15:31)
[2022-01-19] MEDS ORDERED: MEPERIDINE INJ 25 MG/ML VIAL (J2175) As Ordered ONE (16:16)
[2022-01-19] MEDS ORDERED: LR 1,000 ML IV SCH (16:40)
[2022-01-19] MEDS ORDERED: PROMETHAZINE 25MG/ML 1ML VIAL IV PRN (16:40)
[2022-01-19] MEDS ORDERED: HYDROMORPHONE HCL 0.5 MG/ 0.5 ML SYRINGE (J1170 PER 1) IV PRN (16:40)
[2022-01-19] MEDS ORDERED: ONDANSETRON 4MG/2ML VIAL IV PRN (16:40)
[2022-01-19] MEDS ORDERED: hydrALAZINE 20MG/ML 1ML VIAL (J0360 PER 20MG) IV PRN (16:45)
[2022-01-19] MEDS ORDERED: LABETALOL 100MG/20ML VIAL IV PRN (16:45)
[2022-01-19] MEDS ORDERED: NORCO, ANEXSIA 5/325MG TABLET (HYDROcodone/ACETAMINOPHEN) PO PRN (16:45)
[2022-01-19] MEDS: MEPERIDINE INJ 25 MG/ML VIAL (J2175) IV PRN ×2 (16:50→16:55)
[2022-01-19 17:50] VITALS: BP 126/81
== END 2022-01-19 17:53 | disposition home or self-care (01) ==
LOC: M SDC 12:53
PROVIDERS: ATTEND Surgery
DX: K80.10 Calculus of gallbladder with chronic cholecystitis without obstruction (principal); R07.9 Chest pain, unspecified; F41.9 Anxiety disorder, unspecified; Z79.899 Other long term (current) drug therapy; Z88.5 Allergy status to narcotic agent; Z88.8 Allergy status to other drugs, medicaments and biological substances; Z92.21 Personal history of antineoplastic chemotherapy
CPT/HCPCS: 47562; 81025; 88304; J0131; J1100; J1885; J2175; J2250; J2405; J2765; J3010; S2900

== ENCOUNTER → 2022-07-10 | Outpatient (REF) ==
[~2022-07-10] MED LIST changes: -LIDOCAINE 1% MDV 20ML VIAL SQ PRN; -LR 1,000 ML IV ONE
[2022-07-10 12:58] LABS: RSV AMPLIFICATION NEGATIVE (NEGATIVE)
== END ==
LOC: M EMP 10:21
PROVIDERS: ATTEND Family Medicine
DX: Z20.822 Contact with and (suspected) exposure to COVID-19 (principal); Z11.52 Encounter for screening for COVID-19

== ENCOUNTER → 2022-07-14 | Outpatient (REF) | payer OTHER | LOC: M SFHCWAGY 13:11 | PROVIDERS: ATTEND Advanced Practice Midwife | DX: Z12.4 Encounter for screening for malignant neoplasm of cervix (principal) ==

== ENCOUNTER → 2022-11-23 | Outpatient (REF) | LOC: M EMP 08:53 | PROVIDERS: ATTEND Family Medicine | DX: Z11.52 Encounter for screening for COVID-19 (principal) ==

== ENCOUNTER → 2022-12-28 | Outpatient (CLI) | payer OTHER | LOC: M WHC 14:12 | PROVIDERS: ATTEND Advanced Practice Midwife | DX: N63.10 Unspecified lump in the right breast, unspecified quadrant (principal) ==

== ENCOUNTER 2024-03-26 21:38 | Emergency (ER) | payer OTHER ==
[~2024-03-26] VITALS: Ht 170.2 cm; Wt 109.1 kg
[~2024-03-26 21:38] MED LIST changes: +ONDA-282 PO; -ONDA4TAB6 PO
[2024-03-26] MEDS: methocarbamoL 500 MG TAB PO ONE (23:27)
[2024-03-26] MEDS: KETOROLAC 60MG 2ML VIAL IM ONE (23:28)
[2024-03-27] MEDS ORDERED: IBUP-1022 PO (00:21)
[2024-03-27] MEDS ORDERED: METH-1164 PO (00:21)
[2024-03-27 00:29] VITALS: BP 124/74; TEMP 98.2; O2SAT 100
== END 2024-03-27 00:31 | disposition home or self-care (01) ==
LOC: M ED 21:38
DX: S29.012A Strain of muscle and tendon of back wall of thorax, initial encounter (principal); X50.0XXA Overexertion from strenuous movement or load, initial encounter; M41.34 Thoracogenic scoliosis, thoracic region; Z87.19 Personal history of other diseases of the digestive system; Z79.1 Long term (current) use of non-steroidal anti-inflammatories (NSAID); Z79.899 Other long term (current) drug therapy; Y92.9 Unspecified place or not applicable; Y93.9 Activity, unspecified; Y99.9 Unspecified external cause status
CPT/HCPCS: 72052; 72072; 96372; 99283; J1885

== ENCOUNTER → 2024-05-25 | Outpatient (REF) ==
[~2024-05-25] MED LIST changes: +IBUP-1022 PO
== END ==
LOC: M EMP 09:37
PROVIDERS: ATTEND Family Medicine
DX: Z20.822 Contact with and (suspected) exposure to COVID-19 (principal)

== ENCOUNTER → 2024-06-22 | Outpatient (REF) | payer OTHER ==
[2024-06-22 14:56] LABS: CHOLESTEROL RISK RATIO 3.26 (<5); HDL CHOLESTEROL 46.5 MG/DL (>40); LDL CHOLESTEROL 88.1 MG/DL (<100); NON-HDL-C 105.5 MG/DL
== END ==
LOC: M LAB REF 13:46
PROVIDERS: ATTEND Nurse Practitioner Family
DX: E66.9 Obesity, unspecified (principal)

== ENCOUNTER → 2024-06-27 | Outpatient (CLI) | payer OTHER | LOC: M PLALAB 14:37 | PROVIDERS: ATTEND Advanced Practice Midwife | DX: N92.6 Irregular menstruation, unspecified (principal) ==

== ENCOUNTER → 2024-06-27 | Outpatient (REF) | payer OTHER ==
[2024-06-29 15:18] LABS: HPV APTIMA Not Detected (Not Detected)
== END ==
LOC: M LAB REF 22:23
PROVIDERS: ATTEND Advanced Practice Midwife
DX: Z12.4 Encounter for screening for malignant neoplasm of cervix (principal)

== ENCOUNTER → 2024-06-29 | Outpatient (CLI) | payer OTHER ==
[2024-06-29 15:39] LABS: BASO # 0.1 10^3/uL (0.0-0.2); BASO % 0.8 % (0.0-1.0); EOS # 0.2 10^3/uL (0.0-0.5); EOS % 2.1 % (0.0-3.0); HEMATOCRIT 31.3 % (36.0-47.0); HEMOGLOBIN 9.8 g/dl (12.0-15.5); LYMPH # 2.8 10^3/uL (1.5-5.0); LYMPH % 34.8 % (24.0-44.0); MEAN CORPUSCULAR HEMOGLOBIN 25.6 pg (27.0-33.0); MEAN CORPUSCULAR HGB CONC 31.3 g/dl (32.0-36.5); MEAN CORPUSCULAR VOLUME 81.7 fl (80.0-96.0); MONO # 0.5 10^3/uL (0.0-0.8); MONO % 6.2 % (2.0-8.0); NEUTROPHILS # 4.4 10^3/uL (1.5-8.5); NEUTROPHILS % 55.7 % (36.0-66.0); PLATELET COUNT, AUTOMATED 414 10^3/uL (150-450); RED BLOOD COUNT 3.83 10^6/uL (4.00-5.40); WHITE BLOOD COUNT 7.9 10^3/uL (4.0-10.0)
[2024-06-29 16:44] LABS: ALKALINE PHOSPHATASE 81 U/L (46-116); ALT/SGPT 14 U/L (7.0-40); AST/SGOT < 8 U/L (<34); BILIRUBIN,TOTAL 0.5 MG/DL (0.3-1.2); BLOOD UREA NITROGEN 9 MG/DL (9-23); CALCIUM LEVEL 9.3 MG/DL (8.5-10.1); CARBON DIOXIDE LEVEL 23 MMOL/L (20-31); CHLORIDE LEVEL 109 MMOL/L (98-107); CREATININE FOR GFR 0.74 MG/DL (0.55-1.30); GLOMERULAR FILTRATION RATE > 60.0 (>60); GLUCOSE, FASTING 85 MG/DL (60-100); MAGNESIUM LEVEL 1.7 MG/DL (1.8-2.4); POTASSIUM SERUM 3.6 MMOL/L (3.5-5.1); SODIUM LEVEL 139 MMOL/L (136-145); TOTAL PROTEIN 7.8 G/DL (5.7-8.2)
[2024-06-29 16:47] LABS: TOTAL 25(OH) VITAMIN D 15.9 NG/ML (20.0-100.0)
[2024-06-29 17:37] LABS: HEMOGLOBIN A1c 5.1 % (4.0-6.0)
== END ==
LOC: M RAD 14:55
PROVIDERS: ATTEND Nurse Practitioner Family
DX: M54.50 Low back pain, unspecified (principal); M54.2 Cervicalgia; E55.9 Vitamin D deficiency, unspecified; E66.9 Obesity, unspecified

== ENCOUNTER → 2024-08-15 | Outpatient (REF) | LOC: M EMP 14:59 | PROVIDERS: ATTEND Family Medicine | DX: Z11.52 Encounter for screening for COVID-19 (principal) ==

== ENCOUNTER → 2024-10-24 | Outpatient (REF) | payer OTHER ==
[2024-10-24 14:13] LABS: BASO # 0.1 10^3/uL (0.0-0.2); BASO % 1.2 % (0.0-1.0); EOS # 0.4 10^3/uL (0.0-0.5); EOS % 9.1 % (0.0-3.0); HEMATOCRIT 35.9 % (36.0-47.0); HEMOGLOBIN 11.2 g/dl (12.0-15.5); LYMPH # 1.7 10^3/uL (1.5-5.0); LYMPH % 35.5 % (24.0-44.0); MEAN CORPUSCULAR HEMOGLOBIN 27.3 pg (27.0-33.0); MEAN CORPUSCULAR HGB CONC 31.2 g/dl (32.0-36.5); MEAN CORPUSCULAR VOLUME 87.6 fl (80.0-96.0); MONO # 0.4 10^3/uL (0.0-0.8); MONO % 7.3 % (2.0-8.0); NEUTROPHILS # 2.3 10^3/uL (1.5-8.5); NEUTROPHILS % 46.7 % (36.0-66.0); PLATELET COUNT, AUTOMATED 394 10^3/uL (150-450); WHITE BLOOD COUNT 4.8 10^3/uL (4.0-10.0)
[2024-10-24 14:18] LABS: PERCENT SATURATION 24.2 % (13.2-45.0)
[2024-10-24 14:21] LABS: FERRITIN 25.9 NG/ML (7.3-270.7)
== END ==
LOC: M LAB REF 12:12
PROVIDERS: ATTEND Nurse Practitioner Family
DX: D64.9 Anemia, unspecified (principal)

== ENCOUNTER → 2025-02-19 | Outpatient (CLI) | payer OTHER | LOC: M RAD 08:52 | PROVIDERS: ATTEND Nurse Practitioner Family | DX: M25.511 Pain in right shoulder (principal) ==

== ENCOUNTER → 2025-02-19 | Outpatient (REF) | payer OTHER ==
[2025-02-19 13:05] LABS: BASO # 0.1 10^3/uL (0.0-0.2); EOS # 0.4 10^3/uL (0.0-0.5); HEMATOCRIT 35.3 % (36.0-47.0); HEMOGLOBIN 11.1 g/dl (12.0-15.5); LYMPH # 1.7 10^3/uL (1.5-5.0); MEAN CORPUSCULAR HEMOGLOBIN 27.9 pg (27.0-33.0); MEAN CORPUSCULAR HGB CONC 31.4 g/dl (32.0-36.5); MEAN CORPUSCULAR VOLUME 88.7 fl (80.0-96.0); MONO # 0.4 10^3/uL (0.0-0.8); MONO % 6.2 % (2.0-8.0); NEUTROPHILS # 3.4 10^3/uL (1.5-8.5); NEUTROPHILS % 57.5 % (36.0-66.0); PLATELET COUNT, AUTOMATED 412 10^3/uL (150-450); RED BLOOD COUNT 3.98 10^6/uL (4.00-5.40)
[2025-02-19 13:40] LABS: TOTAL IRON BINDING CAPACITY 334 UG/DL (250-425)
[2025-02-19 13:43] LABS: ALBUMIN 3.7 G/DL (3.2-5.2); ALKALINE PHOSPHATASE 87 U/L (35-104); ALT/SGPT 15 U/L (7.0-40); AST/SGOT < 8 U/L (<34); BILIRUBIN,TOTAL 0.5 MG/DL (0.3-1.2); BLOOD UREA NITROGEN 9 MG/DL (9-23); CALCIUM LEVEL 8.9 MG/DL (8.5-10.1); CARBON DIOXIDE LEVEL 26 MMOL/L (20-31); CHLORIDE LEVEL 106 MMOL/L (98-107); CREATININE FOR GFR 0.63 MG/DL (0.55-1.30); GLOMERULAR FILTRATION RATE > 90.0 (>60); GLUCOSE, FASTING 97 MG/DL (60-100); IRON (FE) 55 UG/DL (50-170); MAGNESIUM LEVEL 1.8 MG/DL (1.8-2.4); PERCENT SATURATION 16.5 % (13.2-45.0); POTASSIUM SERUM 4.4 MMOL/L (3.5-5.1); SODIUM LEVEL 140 MMOL/L (136-145); THYROID STIMULATING HORMONE 0.832 uIU/ML (0.55-4.78); TOTAL PROTEIN 7.4 G/DL (5.7-8.2)
[2025-02-19 13:44] LABS: FERRITIN 33.1 NG/ML (7.3-270.7)
== END ==
LOC: M LAB REF 12:14
PROVIDERS: ATTEND Nurse Practitioner Family
DX: D64.9 Anemia, unspecified (principal); R00.2 Palpitations

== ENCOUNTER → 2025-06-02 | Outpatient (CLI) | payer OTHER ==
[~2025-06-02] MED LIST changes: +LIDO1ADH93 TOP; -LIDO5DIS41 TOP
== END ==
LOC: M RAD 10:04
PROVIDERS: ATTEND Physician Assistant
DX: R41.3 Other amnesia (principal)

== ENCOUNTER → 2025-06-28 | Outpatient (CLI) | payer OTHER ==
[~2025-06-28] MED LIST changes: -IBUP-1022 PO; +IBUP600T42 PO
== END ==
LOC: M RAD 15:38
PROVIDERS: ATTEND Physician Assistant
DX: M25.561 Pain in right knee (principal)

== ENCOUNTER → 2025-06-29 | Outpatient (CLI) | payer OTHER | LOC: M PLALAB 10:23 | PROVIDERS: ATTEND Advanced Practice Midwife | DX: Z01.419 Encounter for gynecological examination (general) (routine) without abnormal findings (principal); N92.0 Excessive and frequent menstruation with regular cycle ==

== ENCOUNTER → 2025-06-29 | Outpatient (REF) | payer OTHER ==
[2025-07-03 14:37] LABS: HPV APTIMA Not Detected (Not Detected)
== END ==
LOC: M PLALAB 10:33
PROVIDERS: ATTEND Advanced Practice Midwife
DX: R87.615 Unsatisfactory cytologic smear of cervix (principal)

== ENCOUNTER → 2025-08-11 | Outpatient (CLI) | payer OTHER | LOC: M EKG 09:38 | PROVIDERS: ATTEND Physician Assistant | DX: R00.2 Palpitations (principal); Z53.9 Procedure and treatment not carried out, unspecified reason ==

== ENCOUNTER → 2025-09-27 | Outpatient (CLI) | payer OTHER | LOC: M PLAIMG 07:45 | PROVIDERS: ATTEND Physician Assistant | DX: M25.561 Pain in right knee (principal) ==

== ENCOUNTER 2025-10-08 14:43 | Outpatient (RCR) | payer OTHER | END 2025-10-17 | LOC: M PT 14:43 | PROVIDERS: ATTEND Physician Assistant | DX: M25.561 Pain in right knee (principal) ==